=== PATIENT | male | born 1945 ===

== ENCOUNTER 2017-07-14 13:29 | Inpatient (IN) | payer MEDICARE ==
[2017-07-14 15:37] VITALS: BMI 26.6
[2017-07-14] MEDS ORDERED: ROSUVASTATIN CALCIUM 2.5 MG PO SCH (22:00)
[2017-07-14] MEDS: Pravastatin Sodium 20 MG TAB PO SCH (22:30)
--- NOTE | 2017-07-15 07:27 | CP.PCM.PN ---
Subjective - Date & Time of Evaluation Date of Evaluation: 07/15/17 Time of Evaluation: 07:22 - Subjective Subjective: Mr. Carlos was seen and examined at the bedside. He is alert, oriented to place and person, but not time. He states of experiencing headache in the right parietal area, non-radiating, 1/10. He denies any blurred vision, dizziness, lightheadedness, nausea, or vomiting. He is on telesitter for patient for patient safety. There is no untoward events overnight. Objective - Vital Signs/Intake and Output Vital Signs (last 24 hours): Temp Pulse Resp BP Pulse Ox 97.5 F L 59 L 20 136/71 100 07/14/17 20:10 07/14/17 20:10 07/14/17 23:57 07/14/17 20:10 07/14/17 23:57 - Medications Medications: Current Medications Divalproex Sodium (Depakote Dr(*Bid*)) 500 mg PO BID [facility] Docusate Sodium (Colace) 100 mg PO DAILY [facility] Folic Acid (Folic Acid) 1 mg PO DAILY [facility] Lisinopril (Zestril) 2.5 mg PO DAILY [facility] Multivitamins/Minerals (Therapeutic-M Tab) 1 tab PO DAILY [facility] Pantoprazole Sodium (Protonix Ec Tab) 40 mg PO DAILY [facility] Pravastatin Sodium (Pravachol) 20 mg PO HS [facility] Last Admin: 07/14/17 22:30 Dose: 20 mg Sennosides (Senokot Tab) 8.6 mg PO DAILY [facility] Sodium Chloride (Sodium Chloride Tab) 1 gm PO BID [facility] Thiamine HCl (Vitamin B1 Tab) 100 mg PO DAILY [facility] Topiramate (Topamax) 25 mg PO BID [facility] - Constitutional Appears: No Acute Distress - Head Exam Head Exam: NORMAL INSPECTION - Neurological Exam Neurological Exam: Alert, Awake Neuro motor strength exam: Left Upper Extremity: 4, Right Upper Extremity: 5, Left Lower Extremity: 4, Right Lower Extremity: 5 Additional comments: Neurological unchanged from previous examination. Assessment and Plan (1) Acute intra-cranial hemorrhage Assessment & Plan: Case discussed with Dr. Corrales, continue alll current medical, physical, occupational, and speech therapies. Will increase Topamax 50 mg PO BID next week then will increase it to 100 mg PO BID for headache. If headache worsen, to do CT of the head without contrast. Status: Acute
[2017-07-15] MEDS: Pantoprazole 40 mg EC Tab PO SCH (09:27)
[2017-07-15] MEDS: Divalproex 500 mg DR(BID formulation) PO SCH ×2 (09:28→17:02)
[2017-07-15] MEDS: Multivitamin With Minerals Tab PO SCH (09:28)
--- NOTE | 2017-07-15 13:40 | CP.PCM.HP ---
History of Present Illness - History of Present Illness History of Present Illness: pt is seen and examined for , H & P dictated #[id number] Present on Admission - Present on Admission Any Indicators Present on Admission: No History of DVT/PE: No History of Uncontrolled Diabetes: No Urinary Catheter: No Decubitus Ulcer Present: No Past Patient History - Past Medical History & Family History Past Medical History?: Yes - Past Social History Smoking Status: Never Smoked - CARDIAC Hx Hypercholesterolemia: Yes Hx Hypertension: Yes - PULMONARY Hx Respiratory Disorders: No - NEUROLOGICAL Hx Neurological Disorder: No Other/Comment: Intraprenchymal Hemorrhage. + right mild subdural hematoma - HEENT Hx Blind: Yes (left eye) Hx Cataracts: Yes ([place]) Other/Comment: deviated septum repair 3 yr ago s/p fall alcohol use - RENAL Hx Chronic Kidney Disease: No - ENDOCRINE/METABOLIC Hx Diabetes Mellitus Type 2: Yes - HEMATOLOGICAL/ONCOLOGICAL Hx AIDS: No Hx Human Immunodeficiency Virus (HIV): No - INTEGUMENTARY Hx Dermatological Problems: No Other/Comment: bilateral plantar area of the foot dry and scaly. - MUSCULOSKELETAL/RHEUMATOLOGICAL Hx Falls: Yes - GASTROINTESTINAL Hx Gastrointestinal Disorders: No - GENITOURINARY/GYNECOLOGICAL Hx Genitourinary Disorders: No - PSYCHIATRIC Hx Depression: Yes Hx Substance Use: No - SURGICAL HISTORY Hx Surgeries: Yes Other/Comment: deviated septum repair 3 yr ago. 06/28/17 = Right central craniotomy,evacuation of subdural. - ANESTHESIA Hx Anesthesia: Yes Hx Anesthesia Reactions: No Meds Allergies/Adverse Reactions: Allergies Allergy/AdvReac Type Severity Reaction Status Date / Time No Known Allergies Allergy Verified 07/14/17 21:02 Results - Vital Signs Recent Vital Signs: Last Vital Signs Temp 97.6 F 07/15/17 08:43 Pulse 60 07/15/17 12:05 Resp 20 07/15/17 08:43 BP 126/75 07/15/17 12:05 Pulse Ox 99 07/15/17 08:43 - Labs Labs: Laboratory Results - last 24 hr 07/15/17 06:37 POC Glucose (mg/dL) 69
--- NOTE | 2017-07-15 17:21 | PCM.OPOC ---
Physiatry Overall Plan of Care - Overall Plan of Care Estimated Length of Stay in Weeks: 2 Rehab Impairment: Mobility, Gait, Cognition, Speech, Balance, Coordination Etiologic Diagnosis: Cerebrovascular Accident Rehab/Medical Prognosis: Fair - Anticipated Interventions Physical Therapy:: Yes Occupational Therapy:: Yes Speech Therapy:: Yes Recreational Therapy:: Yes - Therapy Goals Bed Mobility: Supervision Ambulation: Supervision Functional Positional Changes:: Supervision - Discharge Plan Discharge Destination: Home
--- NOTE | 2017-07-15 17:24 | CP.PCM.CON ---
History of Present Illness - History of Present Illness History of Present Illness: Dr Holloway PMR consultation on Ant Carlos, born 1945, who has been admitted to [facility] for acute inpatient rehabilitation following a fall while under the influence with SDH. Had evacuation right side. Sweetie in place. Stable. Long standing left eye injury Review of Systems - Constitutional Constitutional: absent: Anorexia, Chills - EENT Eyes: absent: Change in Vision Ears: absent: Ear Discharge Nose/Mouth/Throat: absent: Nasal Congestion - Cardiovascular Cardiovascular: absent: Chest Pain - Respiratory Respiratory: absent: Dyspnea, Hemoptysis, Wheezing - Gastrointestinal Gastrointestinal: absent: Belching, Bloating, Constipation - Musculoskeletal Musculoskeletal: absent: Back Pain - Integumentary Integumentary: Other (right sided scalp sweetie) - Neurological Neurological: Weakness. absent: Abnormal Movements Past Patient History - Past Medical History & Family History Past Medical History?: Yes - Past Social History Smoking Status: Never Smoked Alcohol: > 2 Drinks/Day Drugs: Denies - CARDIAC Hx Hypercholesterolemia: Yes Hx Hypertension: Yes - PULMONARY Hx Respiratory Disorders: No - NEUROLOGICAL Hx Neurological Disorder: No Other/Comment: Intraprenchymal Hemorrhage. + right mild subdural hematoma - HEENT Hx Blind: Yes (left eye) Hx Cataracts: Yes ([place]) Other/Comment: deviated septum repair 3 yr ago s/p fall alcohol use - RENAL Hx Chronic Kidney Disease: No - ENDOCRINE/METABOLIC Hx Diabetes Mellitus Type 2: Yes - HEMATOLOGICAL/ONCOLOGICAL Hx AIDS: No Hx Human Immunodeficiency Virus (HIV): No - INTEGUMENTARY Hx Dermatological Problems: No Other/Comment: bilateral plantar area of the foot dry and scaly. - MUSCULOSKELETAL/RHEUMATOLOGICAL Hx Falls: Yes - GASTROINTESTINAL Hx Gastrointestinal Disorders: No - GENITOURINARY/GYNECOLOGICAL Hx Genitourinary Disorders: No - PSYCHIATRIC Hx Depression: Yes Hx Substance Use: No - SURGICAL HISTORY Hx Surgeries: Yes Other/Comment: deviated septum repair 3 yr ago. 06/28/17 = Right central craniotomy,evacuation of subdural. - ANESTHESIA Hx Anesthesia: Yes Hx Anesthesia Reactions: No Meds Allergies/Adverse Reactions: Allergies Allergy/AdvReac Type Severity Reaction Status Date / Time No Known Allergies Allergy Verified 07/14/17 21:02 - Medications Medications: Current Medications Divalproex Sodium (Yasmeen Pink(*Bid*)) 500 mg PO BID [facility] Last Admin: 07/15/17 17:02 Dose: 500 mg Docusate Sodium (Colace) 100 mg PO DAILY [facility] Last Admin: 07/15/17 09:28 Dose: 100 mg Folic Acid (Folic Acid) 1 mg PO DAILY [facility] Last Admin: 07/15/17 09:29 Dose: 1 mg Lisinopril (Zestril) 2.5 mg PO DAILY [facility] Last Admin: 07/15/17 09:27 Dose: 2.5 mg Multivitamins/Minerals (Therapeutic-M Tab) 1 tab PO DAILY [facility] Last Admin: 07/15/17 09:28 Dose: 1 tab Pantoprazole Sodium (Protonix Ec Tab) 40 mg PO DAILY [facility] Last Admin: 07/15/17 09:27 Dose: 40 mg Pravastatin Sodium (Pravachol) 20 mg PO HS [facility] Last Admin: 07/14/17 22:30 Dose: 20 mg Sennosides (Senokot Tab) 8.6 mg PO DAILY [facility] Last Admin: 07/15/17 09:28 Dose: 8.6 mg Sodium Chloride (Sodium Chloride Tab) 1 gm PO BID [facility] Last Admin: 07/15/17 17:02 Dose: 1 gm Thiamine HCl (Vitamin B1 Tab) 100 mg PO DAILY [facility] Last Admin: 07/15/17 09:29 Dose: 100 mg Topiramate (Topamax) 25 mg PO BID [facility] Last Admin: 07/15/17 17:02 Dose: 25 mg Physical Exam - Constitutional Appears: Non-toxic - Head Exam Head Exam: absent: ATRAUMATIC (right scalp sweetie) - Eye Exam Eye Exam: absent: Normal appearance (has left eye asymmetry) - ENT Exam ENT Exam: Mucous Membranes Moist - Respiratory Exam Respiratory Exam: NORMAL BREATHING PATTERN - Cardiovascular Exam Cardiovascular Exam: REGULAR RHYTHM - GI/Abdominal Exam GI & Abdominal Exam: Normal Bowel Sounds. absent: Distended - Extremities Exam Extremities exam: Positive for: full ROM. Negative for: calf tenderness, pedal edema - Neurological Exam Neurological exam: Alert, CN II-XII Intact, Oriented x3 - Psychiatric Exam Psychiatric exam: Normal Affect, Normal Mood Results - Vital Signs Recent Vital Signs: Last Vital Signs Temp 97.6 F 07/15/17 08:43 Pulse 60 07/15/17 12:05 Resp 20 07/15/17 08:43 BP 126/75 07/15/17 12:05 Pulse Ox 99 07/15/17 08:43 - Labs Labs: Laboratory Results - last 24 hr 07/15/17 06:37 POC Glucose (mg/dL) 69 Assessment & Plan - Assessment and Plan (Free Text) Assessment: PT/OT to continue to help increase functional independence Team conference for d/c planning Pain: controlled Vascular: no evidence of DVT GI: No evidence of constipation or diarrhea Patient is an excellent acute rehabilitation candidate and will have focused pain management, wound care, PT, OT and recreational therapy to help facilitate a safe and appropriate d/c plan impairment code 02.21
[2017-07-15] MEDS: Pravastatin Sodium 20 MG TAB PO SCH (21:13)
--- NOTE | 2017-07-16 00:34 | HP ---
Patient is seen and examined for Dr. Martin Bowen. LOCATION: The patient is located in room 621, bed 1. HISTORY OF PRESENT ILLNESS: Mr. Carlos is a 72-year-old elderly male with a past medical history significant for longstanding hypertension, hyperlipidemia, history of ETOH abuse, history of multiple falls in the past and left eye blind with proptosis, had a fall on and subsequently patient came to the emergency room on 06/17/2017 with a chief complaint of altered mental status and no energy and not following his routine activity since he had a fall and patient's family noticed he has some altered mental status and patient was found to have a right frontal hemorrhage and also subdural hematoma. Subsequently, patient was seen by the Neurology and Neurosurgery and admitted to ICU for further management and initially treated medically. Subsequently, patient underwent evacuation of the right subdural hematoma one week after the admission. Now, patient was transferred to acute rehab for continuation of the physical therapy. Patient is not in acute distress. Denies any headache or dizziness. He denies any chest pain, palpitation. Denies any fever, cough. No abdominal pain. No nausea, vomiting, diarrhea. The patient had weakness of the left upper extremity and lower extremity after the evacuation of subdural hematoma in recovery period. Patient was suspected having seizure and his antiseizure medication was adjusted. PAST MEDICAL HISTORY: Significant for hypertension, hyperlipidemia, multiple falls, ETOH abuse. PAST SURGICAL HISTORY: Status post fall, repair of deviated septum and patient also has proptosis of the left eye. ALLERGIES: NO KNOWN DRUG ALLERGIES. FAMILY HISTORY: Noncontributory. PERSONAL HISTORY: Claims he lives alone, not , no children. He had own his . SOCIAL HISTORY: Denies any smoking or drug abuse. 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 CURRENT MEDICATIONS: Include as follows: Colace 100 mg p.o. daily, Depakote 500 mg p.o. b.i.d., folic acid 1 mg daily, pravastatin 20 mg p.o. at bedtime, Protonix 40 mg daily, Senokot 8.6 mg p.o. daily, sodium chloride tablet 1 g p.o. b.i.d., multivitamin 1 tablet daily, Topamax 25 mg p.o. b.i.d., thiamine 100 mg p.o. daily and lisinopril 2.5 mg p.o. daily. REVIEW OF SYSTEMS: Status post fall, intracranial bleed and subdural hematoma, status post evacuation of hematoma, status post left-sided weakness secondary to seizure. All other review of systems are reviewed as per HPI. PHYSICAL EXAMINATION: GENERAL: Mr. Carlos is a 72-year-old elderly male, moderately build, moderately nourished, not in acute distress. VITAL SIGNS: Blood pressure 126/75, pulse 60, respirations 20, temperature 97.6, saturation 100%. Height 5 feet 1 inches, weight is 145 pounds, BMI of 27.5. HEENT: Patient has a scar on the right frontoparietal area and also patient has proptosis on the left eye. Tongue is moist. Trachea is midline. LUNGS: Symmetric on both sides. Bilateral breath sounds present. Clear on auscultation. CARDIOVASCULAR SYSTEM: [place] at the fifth intercostal space in midclavicular line. S1 and S2 audible. No murmur or gallop. ABDOMEN: Normal in appearance. Soft, tympanic. No guarding. No rigidity. No hepatosplenomegaly. CENTRAL NERVOUS SYSTEM: The patient is alert, awake, oriented x2-3. Sensory and motor system is grossly within normal limits. EXTREMITIES: No cyanosis. No clubbing. No edema. Power in both upper and lower extremities is normal at 5/5. LABORATORY DATA: No new labs available. Accu-Chek 59. His other laboratory data as of 07/13/2017, WBC 4.8, hemoglobin 13, hematocrit 37.4, platelets 153. Sodium 134, potassium 3.4, chloride 101, CO2 of 26, BUN 13, creatinine 0.8, glucose 92, calcium 7.9, magnesium 2.2, total bilirubin 0.7, AST 22, ALT 34, alkaline phosphatase 79, total protein 6.7, albumin 3.4, valproic acid level is 65.4 on 07/12/2017 and the normal range is 50 to 100. As of 07/14/2017, sodium 134, potassium 3.7, chloride 105, CO2 of 22, BUN 13, creatinine 0.9, glucose 84, calcium 8.3. CT of the head as of 07/12/2017, cystic encephalomalacia is developing at the right frontal intraparenchymal hemorrhage site with hemorrhage appearing further diminished in density and overall volume, stable right cerebral convexity, subdural hematoma appreciated though, diminished in density with trace pneumocephalus remaining, limited right epidural hematoma are further diminished in density and volume, midline shift is reducing, no acute intracranial findings appreciable grossly. In summary, Mr. Carlos is a 72-year-old elderly male with history of hypertension, hyperlipidemia, ethyl alcohol abuse, history of multiple falls, status post fall on with altered mental status and decreased activity, brought into the hospital on 06/17/2017 after 7 to 9 days by the family and found to have right frontal bleed and also a right subdural hematoma, status post evacuation of the hematoma subdural, questionable seizure activity and left-sided weakness in [facility] postop. 1. Hypertension, blood pressure is stable. Continue enalapril. Monitor his blood pressure, avoid blood pressure more than 140. 2. Status post fall with intracranial bleed. 3. Status post evacuation of the right subdural hematoma. 4. 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 5. Status post hyponatremia, most likely secondary to syndrome of inappropriate antidiuretic hormone secondary to intracranial bleed and subdural hematoma. PLAN: Continue his current medication. Continue thiamine and continue Depakote. Continue enalapril and continue sodium chloride tablets, multivitamin, and folic acid. Continue pravastatin. Continue physical therapy as per the rehab recommendations. Patient was seen and examined. Amanda Bowen MD
[2017-07-16] MEDS: Divalproex 500 mg DR(BID formulation) PO SCH ×2 (08:27→17:23)
[2017-07-16] MEDS: Multivitamin With Minerals Tab PO SCH (08:28)
[2017-07-16] MEDS: Pantoprazole 40 mg EC Tab PO SCH (08:29)
[2017-07-16] MEDS: Pravastatin Sodium 20 MG TAB PO SCH (21:32)
[2017-07-17 06:54] LABS: HEMOGLOBIN 12.7 g/dL (12.0-18.0); MEAN CORPUSCULAR HEMOGLOBIN 30.8 pg (27.0-31.0); MEAN CORPUSCULAR HGB CONC 34.3 g/dL (33.0-37.0); RBC 4.13 Mil/uL (4.40-5.90); RED CELL DISTRIBUTION WIDTH 13.8 % (11.5-14.5); WHITE BLOOD COUNT 5.2 K/uL (4.8-10.8)
[2017-07-17 07:09] LABS: BLOOD UREA NITROGEN 15 mg/dl (9-20); CALCIUM 8.9 mg/dL (8.4-10.2); GFR AFRICAN-AMERICAN > 60; GFR NON-AFRICAN AMERICAN > 60
[2017-07-17] MEDS: Divalproex 500 mg DR(BID formulation) PO SCH ×2 (08:45→16:53)
[2017-07-17] MEDS: Multivitamin With Minerals Tab PO SCH (08:45)
[2017-07-17] MEDS: Pantoprazole 40 mg EC Tab PO SCH (08:46)
[2017-07-17] MEDS: Pravastatin Sodium 20 MG TAB PO SCH (21:05)
--- NOTE | 2017-07-18 06:55 | CP.PCM.PN ---
Subjective - Date & Time of Evaluation Date of Evaluation: 07/18/17 Time of Evaluation: 06:53 - Subjective Subjective: Mr. Carlos was seen and examined at the bedside. He is alert, oriented to place and person , but not time. He states of his headache improving over the weekend. He also denies any blurred vision, dizziness, lightheadedness, nausea, or vomiting. He remains on telesitter for patient safety. There was no untoward events overnight. Objective - Vital Signs/Intake and Output Vital Signs (last 24 hours): Temp Pulse Resp BP Pulse Ox 96.9 F L 69 20 102/67 96 07/17/17 19:51 07/17/17 19:51 07/17/17 19:51 07/17/17 19:51 07/17/17 19:51 - Medications Medications: Current Medications Divalproex Sodium (Depakote Dr(*Bid*)) 500 mg PO BID [facility] Last Admin: 07/17/17 16:53 Dose: 500 mg Docusate Sodium (Colace) 100 mg PO DAILY [facility] Last Admin: 07/17/17 08:45 Dose: 100 mg Folic Acid (Folic Acid) 1 mg PO DAILY [facility] Last Admin: 07/17/17 08:45 Dose: 1 mg Lisinopril (Zestril) 2.5 mg PO DAILY [facility] Last Admin: 07/17/17 08:46 Dose: 2.5 mg Multivitamins/Minerals (Therapeutic-M Tab) 1 tab PO DAILY [facility] Last Admin: 07/17/17 08:45 Dose: 1 tab Pantoprazole Sodium (Protonix Ec Tab) 40 mg PO DAILY [facility] Last Admin: 07/17/17 08:46 Dose: 40 mg Pravastatin Sodium (Pravachol) 20 mg PO HS [facility] Last Admin: 07/17/17 21:05 Dose: 20 mg Sennosides (Senokot Tab) 8.6 mg PO DAILY [facility] Last Admin: 07/17/17 08:45 Dose: 8.6 mg Sodium Chloride (Sodium Chloride Tab) 1 gm PO BID [facility] Last Admin: 07/17/17 16:53 Dose: 1 gm Thiamine HCl (Vitamin B1 Tab) 100 mg PO DAILY [facility] Last Admin: 07/17/17 08:45 Dose: 100 mg Topiramate (Topamax) 50 mg PO BID [facility] - Labs Labs: 07/17/17 06:00 01/01/18 06:00 - Constitutional Appears: No Acute Distress - Head Exam Head Exam: NORMAL INSPECTION - Neurological Exam Neurological Exam: Alert, Awake Neuro motor strength exam: Left Upper Extremity: 4, Right Upper Extremity: 5, Left Lower Extremity: 4, Right Lower Extremity: 5 Additional comments: Neurological unchanged from previous examination. Assessment and Plan (1) Acute intra-cranial hemorrhage Assessment & Plan: Case discussed with Dr. Corrales, recommend to increase Topamax from 25 mg PO BID to [address] of the head without contrasts to follow up the midline shift and cystic encephalomalacia. Recommends valproic level due to his depakote meds. Status: Acute
[2017-07-18] MEDS: Multivitamin With Minerals Tab PO SCH (08:29)
[2017-07-18] MEDS: Pantoprazole 40 mg EC Tab PO SCH (08:29)
[2017-07-18] MEDS: Divalproex 500 mg DR(BID formulation) PO SCH ×2 (08:29→17:18)
--- NOTE | 2017-07-18 08:45 | CT ---
PROCEDURE: CT HEAD WITHOUT CONTRAST. HISTORY: follow [facility] COMPARISON: 07/12/2017 and 07/07/2017 performed at [facility] TECHNIQUE: Axial computed tomography images were obtained through the head/brain without intravenous contrast. Radiation dose: Total exam DLP = 1475.78 mGy-cm. This CT exam was performed using one or more of the following dose reduction techniques: Automated exposure control, adjustment of the mA and/or kV according to patient size, and/or use of iterative reconstruction technique. FINDINGS: HEMORRHAGE: No residual high attenuation in the region of the previously noted right frontal parenchymal hemorrhage. There is residual low-attenuation consistent with encephalomalacia change and edema. There is continued decrease in size of the right high frontal extra-axial collection, likely subdural, compared to 07/05. Postoperative changes are seen status post right frontal craniotomy. There is no acute intracranial hemorrhage. There is no new extra-axial collection. Evaluation is limited by patient motion artifact. BRAIN: No intracranial mass. There is approximately 9 mm midline shift towards the left. This is not appreciably changed when compared to the prior examination. VENTRICLES: No hydrocephalus. No evidence of downward herniation. Basal cisterns are preserved. CALVARIUM: Right frontal craniotomy PARANASAL SINUSES: Unremarkable as visualized. No significant inflammatory changes. MASTOID AIR CELLS: Unremarkable as visualized. No inflammatory changes. OTHER FINDINGS: None. IMPRESSION: Subacute right frontal hemorrhage with no residual high attenuation blood products with surrounding edema/ encephalomalacia. Decreasing size of right frontal extra-axial collection. Status post right frontal craniotomy. 9 mm midline shift towards the left. No downward herniation. No new hemorrhage.
--- NOTE | 2017-07-18 13:58 | CP.PCM.PN ---
Subjective - Date & Time of Evaluation Date of Evaluation: 07/18/17 Time of Evaluation: 10:00 - Subjective Subjective: no acute [id number] of any headache or pain Objective - Vital Signs/Intake and Output Vital Signs (last 24 hours): Temp Pulse Resp BP Pulse Ox 97.3 F L 51 L 20 114/48 L 96 07/18/17 07:59 07/18/17 07:59 07/18/17 07:59 07/18/17 08:28 07/18/17 07:59 - Medications Medications: Current Medications Divalproex Sodium (Depakote Dr(*Bid*)) 500 mg PO BID [facility] Last Admin: 07/18/17 08:29 Dose: 500 mg Docusate Sodium (Colace) 100 mg PO DAILY [facility] Last Admin: 07/18/17 08:29 Dose: 100 mg Folic Acid (Folic Acid) 1 mg PO DAILY [facility] Last Admin: 07/18/17 08:28 Dose: 1 mg Lisinopril (Zestril) 2.5 mg PO DAILY [facility] Last Admin: 07/18/17 08:28 Dose: 2.5 mg Multivitamins/Minerals (Therapeutic-M Tab) 1 tab PO DAILY [facility] Last Admin: 07/18/17 08:29 Dose: 1 tab Pantoprazole Sodium (Protonix Ec Tab) 40 mg PO DAILY [facility] Last Admin: 07/18/17 08:29 Dose: 40 mg Pravastatin Sodium (Pravachol) 20 mg PO HS [facility] Last Admin: 07/17/17 21:05 Dose: 20 mg Sennosides (Senokot Tab) 8.6 mg PO DAILY [facility] Last Admin: 07/18/17 08:30 Dose: 8.6 mg Sodium Chloride (Sodium Chloride Tab) 1 gm PO BID [facility] Last Admin: 07/18/17 08:27 Dose: 1 gm Thiamine HCl (Vitamin B1 Tab) 100 mg PO DAILY [facility] Last Admin: 07/18/17 08:27 Dose: 100 mg Topiramate (Topamax) 50 mg PO BID [facility] Last Admin: 07/18/17 10:18 Dose: 50 mg - Labs Labs: 07/17/17 06:00 07/17/17 06:00 - Head Exam Additional comments: scalp healing with madhuri - Eye Exam Eye Exam: EOMI, Normal appearance, PERRL Pupil Exam: NORMAL ACCOMODATION - ENT Exam ENT Exam: Mucous Membranes Moist, Normal Exam - Neck Exam Neck Exam: Full ROM, Normal Inspection - Respiratory Exam Respiratory Exam: NORMAL BREATHING PATTERN - Cardiovascular Exam Cardiovascular Exam: REGULAR RHYTHM - GI/Abdominal Exam GI & Abdominal Exam: Soft, Normal Bowel Sounds - Rectal Exam Rectal Exam: NORMAL INSPECTION - Exam External exam: NORMAL EXTERNAL EXAM - Extremities Exam Extremities Exam: Full ROM, Normal Capillary Refill - Back Exam Back Exam: NORMAL INSPECTION - Neurological Exam Neurological Exam: Alert, Awake Neuro motor strength exam: Left Upper Extremity: 3, Right Upper Extremity: 3, Left Lower Extremity: 3, Right Lower Extremity: 3 - Psychiatric Exam Psychiatric exam: Normal Affect, Normal Mood - Skin Skin Exam: Dry, Intact, Normal Color Assessment and Plan (1) Acute intra-cranial hemorrhage Assessment & Plan: plan for physical, occupatonal, rec therapy for team conference Status: Acute (2) Alcohol intoxication Status: Acute (3) Fall Status: Acute (4) Head ache Status: Acute (5) Intraparenchymal hematoma of brain Status: Acute (6) Multiple fractures of ribs Status: Acute
[2017-07-18] MEDS: Pravastatin Sodium 20 MG TAB PO SCH (21:21)
[2017-07-19 07:50] LABS: ALBUMIN 3.2 g/dL (3.5-5.0); BILIRUBIN,DIRECT 0.2 mg/ml (0.0-0.4)
[2017-07-19] MEDS: Divalproex 500 mg DR(BID formulation) PO SCH ×2 (08:06→16:29)
[2017-07-19] MEDS: Multivitamin With Minerals Tab PO SCH (08:07)
[2017-07-19] MEDS: Pantoprazole 40 mg EC Tab PO SCH (08:07)
--- NOTE | 2017-07-19 08:33 | CP.PCM.PN ---
Subjective - Date & Time of Evaluation Date of Evaluation: 07/19/17 Time of Evaluation: 08:30 - Subjective Subjective: Mr. Carlos was seen and examined at the bedside. He is alert, oriented, able to answer questions appropriately and follows simple commands. He further states of his headache improved with pain scale 1/10, non-radiating, with location in the parietal area. He denies any blurred vision, dizziness, lightheadedness, nausea, or vomiting. The repeat CT of the head showed improvement form previous examination. His valproic level 51.5 and Na-141. He remains on telesitter for patient safety. There was no untoward events overnight. Objective - Vital Signs/Intake and Output Vital Signs (last 24 hours): Temp Pulse Resp BP Pulse Ox 97.0 F L 63 18 132/80 100 07/18/17 21:00 07/19/17 08:00 07/19/17 08:00 07/19/17 08:07 07/19/17 08:00 - Medications Medications: Current Medications Divalproex Sodium (Depakote Dr(*Bid*)) 500 mg PO BID [facility] Last Admin: 07/19/17 08:06 Dose: 500 mg Docusate Sodium (Colace) 100 mg PO DAILY [facility] Last Admin: 07/19/17 08:07 Dose: 100 mg Folic Acid (Folic Acid) 1 mg PO DAILY [facility] Last Admin: 07/19/17 08:06 Dose: 1 mg Lisinopril (Zestril) 2.5 mg PO DAILY [facility] Last Admin: 07/19/17 08:07 Dose: 2.5 mg Multivitamins/Minerals (Therapeutic-M Tab) 1 tab PO DAILY [facility] Last Admin: 07/19/17 08:07 Dose: 1 tab Pantoprazole Sodium (Protonix Ec Tab) 40 mg PO DAILY [facility] Last Admin: 07/19/17 08:07 Dose: 40 mg Pravastatin Sodium (Pravachol) 20 mg PO HS [facility] Last Admin: 07/18/17 21:21 Dose: 20 mg Sennosides (Senokot Tab) 8.6 mg PO DAILY [facility] Last Admin: 07/19/17 08:06 Dose: 8.6 mg Sodium Chloride (Sodium Chloride Tab) 1 gm PO DAILY [facility] Thiamine HCl (Vitamin B1 Tab) 100 mg PO DAILY [facility] Last Admin: 07/19/17 08:06 Dose: 100 mg Topiramate (Topamax) 50 mg PO BID [facility] Last Admin: 07/19/17 08:06 Dose: 50 mg - Labs Labs: 07/17/17 06:00 07/17/17 06:00 - Constitutional Appears: No Acute Distress - Head Exam Head Exam: NORMAL INSPECTION - Neurological Exam Neurological Exam: Alert, Awake Neuro motor strength exam: Left Upper Extremity: 5, Right Upper Extremity: 4, Left Lower Extremity: 5, Right Lower Extremity: 4 Additional comments: Neurological unchanged from previous examination. Assessment and Plan (1) Acute intra-cranial hemorrhage Assessment & Plan: Case discussed with Dr. Corrales, continue current medical, physical, occupational therapies. With Valproic level within normal , to continue same dose of Depakote. Recommends to decrease salt tablet from BID to daily since his Na level is within normal limits. Will repeat BMP in couple of days. Status: Acute
--- NOTE | 2017-07-19 12:19 | PSY.TMCNF ---
Nursing - Vital Signs Vital Signs (Last 8 hours): Vital Signs 07/19/17 07/19/17 07/19/17 08:00 08:07 08:25 Temperature 97.0 F L Pulse Rate 63 63 Respiratory 18 18 Rate Blood Pressure 132/80 132/80 132/80 O2 Sat by Pulse 100 Oximetry Pain: 0 - Precautions: Precautions: Fall Prevention - Medications/Other Issues Comment: - Still on Avasys - Consults Comment: Dr. Escobar ( Neuro ) , Dr. Holloway ( Rehab ) - Skin Incision Site: Right side of the head Dressing Status: Clean, Dry, Intact Incision: Healing Well, Sweetie Intact, No Drainage Noted Incision Line Treatment: open to air - Toileting Toileting: Supervision - Bladder Management Bladder Pattern: Normal Voiding Method: Toilet - Bowel Management Bowel Pattern: Normal Bowel Management: Supervision Frequency of Accidents: 0 - Transfers Transfers: Minimal Assistance - ADL's ADL's: Minimal Assistance - Patient/Family Teaching Comments: Care post head injury and safety precautions - Goals/Time Frame Comments: Per multidisciplinary care plan and goals - Provider Provider: Robina CASEN RN CRRN Physical Therapy - Bed Mobility Bed Mobility: Supervision, Verbal Cues, Contact Guard - Transfers Wheelchair to Mat: Supervision, Verbal Cues, Contact Guard Sit to Stand: Verbal Cues, Contact Guard - Ambulation Level of Assistance: Verbal Cues, Contact Guard Distance (ft.): 75 Assistive Devices: Single point cane Orthoses: n/a Comment: -SPC (RUE), level surface, CG. -utilize min tactile cues and verbal cues to attempt to have patient increase speed. -VCs for upright gaze and improved safety. -patient lacks motivation and safety. -demonstrates very slow gait with little reactions to environmental stimuli - Stair Negotiation Stairs: Level of Assistance: Contact Guard Stairs: Assistive Devices: Left Handrail, Right Handrail Comment: 5 training steps (3-4inch and 2-6inch) with CG/min A, self-selected reciprocal pattern, L hand rail and SPC on R side. -impaired eccentric control on descent with very slow speed noted during stair negotiation - Standing Balance Static Stand: Contact Guard Assist Dynamic Stand: Minimal Assistance - Pain Pain (assessed during therapy session): 0 - Insight/Carryover Insight/Carryover: Poor - Patient/Family Education Comment: Pt disoriented, with poor awareness and safety awareness. Pt with poor insight to deficits and affect on importance, pt requires continued education and training with family present secondary to cognitive deficits - Assessment/Plan Assessment: Pt was oriented to benefits and purpose of participating in recreation therapy sessions throughout stay on unit. Pt participated in dominoes task and required mod A throughout task. Pt required mod-max verbal cues for number recognition, visual scanning, and attention to task. Pt required mod verbal cues for carryover of task rules. Pt demonstrated decrease arousal level and activity tolerance level. Pt would benefit from participating in recreation therapy sessions to improve attention to task, arousal level, and direction following. - Goals Timeframe: 1 week Goals: S toileting. S toilet txfers. S UE Dressing. S LE dressing. MOD I grooming. MOD I feeding. MIN A bathing. MIN A tub txfer - Provider Therapist: Mary Fiore PT, DPT License Number: [id number] Occupational Therapy - Arousal/Attention/Orientation Patient Orientation: Person - ADL/IADL Self Feeding: Supervision, Set-up Help Grooming: Supervision, Verbal Cues, Set-up Help Dressing-Upper Extremity: Verbal Cues, Set-up Help, Minimal Assistance Dressing-Lower Extremity: Verbal Cues, Set-up Help, Maximum Assistance Comment: Bathing: TBA - Sitting Balance Static Sitting: Supervision Dynamic Sitting: Reaches across midline, Reaches out of base of support, Reaches within base of support, Requires supervision Comment: seated at edge of bed - Transfers Wheelchair to Bed Transfers: Verbal Cues, Set-up Help, Minimal Assistance Toilet Transfers: Set-up Help, Minimal Assistance - Upper Extremity Status Right Upper Extremity Comment: ROM WFL, MMT grossly 4+/5 Left Upper Extremity Comment: ROM WFL, MMT grossly 4-/5, Impaired coordination/ dexterity - Pain Pain (assessed during therapy session): 0 - Insight/Carryover Insight/Carryover: Poor - Patient/Family Education Comment: Pt disoriented, with poor awareness and safety awareness. Pt with poor insight to deficits and affect on importance, pt requires continued education and training with family present secondary to cognitive deficits - Assessment/Plan Assessment: Pt was oriented to benefits and purpose of participating in recreation therapy sessions throughout stay on unit. Pt participated in dominoes task and required mod A throughout task. Pt required mod-max verbal cues for number recognition, visual scanning, and attention to task. Pt required mod verbal cues for carryover of task rules. Pt demonstrated decrease arousal level and activity tolerance level. Pt would benefit from participating in recreation therapy sessions to improve attention to task, arousal level, and direction following. - Goals Timeframe: 1 week Goals: S toileting. S toilet txfers. S UE Dressing. S LE dressing. MOD I grooming. MOD I feeding. MIN A bathing. MIN A tub txfer - Provider Therapist: Valerie Benedict License Number: [id number] Speech Therapy - Consult Information Patient on Program: Yes Medical Diagnosis: INTRAPARENCHYMAL HEMORRHAGE Treatment Diagnosis: moderate cognitive-linguistic deficits - Assessment Problem Solving Impairment: Moderate Memory Impairment: Moderate - Plan Assessment: Pt was oriented to benefits and purpose of participating in recreation therapy sessions throughout stay on unit. Pt participated in dominoes task and required mod A throughout task. Pt required mod-max verbal cues for number recognition, visual scanning, and attention to task. Pt required mod verbal cues for carryover of task rules. Pt demonstrated decrease arousal level and activity tolerance level. Pt would benefit from participating in recreation therapy sessions to improve attention to task, arousal level, and direction following. - Provider Therapist: Janet Alfred License Number: [id number] Recreational Therapy - Participation Participation: Participates in Individual and/or Group Sessions - Attendance Attendance: Daily - Activities Leisure Activities: Television - Socialization Level of Socialization: Initiates/interacts freely with care givers and peer - Diversional Time Diversional Time: likes to watch television, sports - Assessment Assessment/Plan: Pt was oriented to benefits and purpose of participating in recreation therapy sessions throughout stay on unit. Pt participated in dominoes task and required mod A throughout task. Pt required mod-max verbal cues for number recognition, visual scanning, and attention to task. Pt required mod verbal cues for carryover of task rules. Pt demonstrated decrease arousal level and activity tolerance level. Pt would benefit from participating in recreation therapy sessions to improve attention to task, arousal level, and direction following. Problems Currently Limiting Participation: disoriented, decrease activity tolerance level, decrease leisure awareness level, decrease memory recall, language barrier, decrease safety awareness Goals and Time Frame: Pt will be encouraged to participate in 1:1 and group recreation therapy sessions 3-5x week to improve activity tolerance level, leisure awareness level, safety awareness, problem solving, and direction following. - Provider Therapist: Radha Ramachandran, PALAEONTOLOGIST #[id number] Nutrition - Current Diet Current Diet/ Supplement/ Feedings: 3 gram Na ensure plus 8 ounces 1 per day - Appetite Percent Meal Consumed: 50-74% - Comments Comments: Care post head injury and safety precautions - Assessment/Goals/Time Frame Assessment/Goals/Time Frame: - Still on Avasys - Provider Provider: Angelique Morel RD Case Management - Discharge Plan Discharge Plan: Home with significant other/family Rehabilitation Plan - Treatment Plan Treatment Plan: Physical Therapy, Occupational Therapy, Speech, Dietary, Patient /Family Education - Recommendation Recommendation: Physical Therapy, Occupational Therapy, Speech, Dietary, Patient /Family Education - Discharge Plan Discharge to: Home ()
--- NOTE | 2017-07-19 12:46 | CP.PCM.PN ---
Subjective - Date & Time of Evaluation Date of Evaluation: 07/19/17 Time of Evaluation: 11:00 - Subjective Subjective: no acute complaints of any headache. Objective - Vital Signs/Intake and Output Vital Signs (last 24 hours): Temp Pulse Resp BP Pulse Ox 97.0 F L 63 18 132/80 100 07/19/17 08:25 07/19/17 08:25 07/19/17 08:25 07/19/17 08:25 07/19/17 08:00 - Medications Medications: Current Medications Divalproex Sodium (Depakote Dr(*Bid*)) 500 mg PO BID [facility] Last Admin: 07/19/17 08:06 Dose: 500 mg Docusate Sodium (Colace) 100 mg PO DAILY [facility] Last Admin: 07/19/17 08:07 Dose: 100 mg Folic Acid (Folic Acid) 1 mg PO DAILY [facility] Last Admin: 07/19/17 08:06 Dose: 1 mg Lisinopril (Zestril) 2.5 mg PO DAILY [facility] Last Admin: 07/19/17 08:07 Dose: 2.5 mg Multivitamins/Minerals (Therapeutic-M Tab) 1 tab PO DAILY [facility] Last Admin: 07/19/17 08:07 Dose: 1 tab Pantoprazole Sodium (Protonix Ec Tab) 40 mg PO DAILY [facility] Last Admin: 07/19/17 08:07 Dose: 40 mg Pravastatin Sodium (Pravachol) 20 mg PO HS [facility] Last Admin: 07/18/17 21:21 Dose: 20 mg Sennosides (Senokot Tab) 8.6 mg PO DAILY [facility] Last Admin: 07/19/17 08:06 Dose: 8.6 mg Sodium Chloride (Sodium Chloride Tab) 1 gm PO DAILY [facility] Last Admin: 07/19/17 09:22 Dose: Not Given Thiamine HCl (Vitamin B1 Tab) 100 mg PO DAILY [facility] Last Admin: 07/19/17 08:06 Dose: 100 mg Topiramate (Topamax) 50 mg PO BID [facility] Last Admin: 07/19/17 08:06 Dose: 50 mg - Labs Labs: 07/17/17 06:00 07/17/17 06:00 - Head Exam Additional comments: scalp healing with madhuri and sutures - Eye Exam Eye Exam: EOMI, Normal appearance, PERRL Pupil Exam: NORMAL ACCOMODATION - ENT Exam ENT Exam: Mucous Membranes Moist, Normal Exam - Neck Exam Neck Exam: Normal Inspection - Respiratory Exam Respiratory Exam: NORMAL BREATHING PATTERN - Cardiovascular Exam Cardiovascular Exam: REGULAR RHYTHM - GI/Abdominal Exam GI & Abdominal Exam: Normal Bowel Sounds - Rectal Exam Rectal Exam: NORMAL INSPECTION - Exam External exam: NORMAL EXTERNAL EXAM - Extremities Exam Extremities Exam: Full ROM, Normal Capillary Refill - Back Exam Back Exam: NORMAL INSPECTION - Neurological Exam Neurological Exam: Alert, Awake Neuro motor strength exam: Left Upper Extremity: 3, Right Upper Extremity: 3, Left Lower Extremity: 3, Right Lower Extremity: 3 Additional comments: problems with balance and coordiantion - Psychiatric Exam Psychiatric exam: Flat Affect, Normal Affect - Skin Skin Exam: Dry, Intact Assessment and Plan (1) Acute intra-cranial hemorrhage Assessment & Plan: plan for physical, occupational, rec and speech therapy status post team conference DC for jul 27 needs time to work on balance and coordination discussed with family Status: Acute (2) Alcohol intoxication Status: Acute (3) Fall Status: Acute (4) Head ache Status: Acute (5) Intraparenchymal hematoma of brain Status: Acute (6) Multiple fractures of ribs Status: Acute
--- NOTE | 2017-07-19 19:59 | CP.PCM.PN ---
Subjective - Date & Time of Evaluation Date of Evaluation: 07/19/17 Time of Evaluation: 19:58 - Subjective Subjective: pt is seen and examined, progress note is dictated #[id number] seen for dr. parish restoril 15 mg po x1 tonight Objective - Vital Signs/Intake and Output Vital Signs (last 24 hours): Temp Pulse Resp BP Pulse Ox 97.0 F L 63 18 132/80 100 07/19/17 08:25 07/19/17 08:25 07/19/17 08:25 07/19/17 08:25 07/19/17 08:00 - Medications Medications: Current Medications Divalproex Sodium (Depakote Dr(*Bid*)) 500 mg PO BID [facility] Last Admin: 07/19/17 16:29 Dose: 500 mg Docusate Sodium (Colace) 100 mg PO DAILY [facility] Last Admin: 07/19/17 08:07 Dose: 100 mg Folic Acid (Folic Acid) 1 mg PO DAILY [facility] Last Admin: 07/19/17 08:06 Dose: 1 mg Lisinopril (Zestril) 2.5 mg PO DAILY [facility] Last Admin: 07/19/17 08:07 Dose: 2.5 mg Multivitamins/Minerals (Therapeutic-M Tab) 1 tab PO DAILY [facility] Last Admin: 07/19/17 08:07 Dose: 1 tab Pantoprazole Sodium (Protonix Ec Tab) 40 mg PO DAILY [facility] Last Admin: 07/19/17 08:07 Dose: 40 mg Pravastatin Sodium (Pravachol) 20 mg PO HS [facility] Last Admin: 07/18/17 21:21 Dose: 20 mg Sennosides (Senokot Tab) 8.6 mg PO DAILY [facility] Last Admin: 07/19/17 08:06 Dose: 8.6 mg Sodium Chloride (Sodium Chloride Tab) 1 gm PO DAILY [facility] Last Admin: 07/19/17 09:22 Dose: Not Given Thiamine HCl (Vitamin B1 Tab) 100 mg PO DAILY [facility] Last Admin: 07/19/17 08:06 Dose: 100 mg Topiramate (Topamax) 50 mg PO BID [facility] Last Admin: 07/19/17 16:29 Dose: 50 mg - Labs Labs: 07/17/17 06:00 07/17/17 06:00
[2017-07-19] MEDS: Pravastatin Sodium 20 MG TAB PO SCH (21:08)
--- NOTE | 2017-07-20 07:24 | PN ---
DATE: 07/19/2017 The patient is seen and examined for Dr. Martin Bowen. LOCATION: The patient is located in room 621, bed 1. SUBJECTIVE: Mr. 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 The patient was admitted 1 week after the fall with altered mental status, decreased activity and confusion. The patient was found to have a right frontal intracranial bleed and also subdural hematoma. Subsequently, the patient underwent evacuation of the subdural hematoma. His repeated CAT scans were improving with intracranial bleed and slower resolution and changes secondary to bleed. Now, the patient was transferred to acute rehab for continuation of the physical therapy. The patient is sometimes restless and insomniac. The patient is at nursing station this evening, not in any distress, following commands. No chest pain. No palpitation. No fever. No cough. PHYSICAL EXAMINATION: GENERAL: Mr. Carlos is a 72-year-old elderly male, moderately built, moderately nourished, not in any acute distress. VITAL SIGNS: His vital signs as follows; blood pressure 132/80 this morning, pulse 63, respirations 18, temperature 97 and this afternoon, blood pressure 124/69. Height 5 feet 1 inches. Weight is 145 pounds. HEENT: The patient has some madhuri on the right frontoparietal area from the recent subdural hematoma evacuation. Left eye is prosthesis. Right eye is normal. No thyroid enlargement. Tongue is moist. Trachea is midline. LUNGS: Symmetric on both sides. Bilateral breath sounds present. Clear on auscultation. CARDIOVASCULAR SYSTEM: [place] at the fifth intercostal space, midclavicular line. S1 and S2 audible. No murmur or gallop. ABDOMEN: Normal in appearance, soft, tympanic. No guarding. No rigidity. No hepatosplenomegaly. CENTRAL NERVOUS SYSTEM: The patient is alert, awake, following commands appropriately. Sensorimotor system is grossly within normal limits. EXTREMITIES: No cyanosis. No clubbing. No edema. Power in all extremities is 5/5. LABORATORY DATA: As of 07/17/2017, WBC 5.2, hemoglobin 12.7, hematocrit is 37.2, platelet 166. Sodium 141, potassium 3.7, chloride 110, CO2 of 21, BUN 15, creatinine 1.0, glucose 75, calcium 8.9, total bili 0.3 and AST 23, ALT 24, alkaline phosphatase 68, total protein 6.3, albumin is 3.2, valproic acid is 51.5 as of 07/18/2017. CT of the head as of 07/18/2017: Subacute right frontal hemorrhage with no residual high attenuation. Blood products with surrounding edema, encephalomalacia, decreasing size of right frontal extra axial collection, status post right frontal craniotomy. 9 mm midline shift toward the left. No downward herniation. No new hemorrhage. MEDICATIONS: His current medications include as follows; Colace 100 mg p.o. daily and Depakote 500 mg p.o. b.i.d. and folic acid 1 mg p.o. daily and Pravachol 20 mg at bedtime, Protonix 40 mg daily, Restoril 15 mg x1 dose tonight and Senokot 8.6 mg p.o. daily, sodium chloride tablet 1 g p.o. daily, multivitamin 1 tablet daily and Topamax 50 mg p.o. b.i.d., thiamine 100 mg p.o. daily and Zestril 2.5 mg p.o. daily. ASSESSMENT AND PLAN: In summary, Mr. Carlos is a 72-year-old elderly male with a history of hypertension, hyperlipidemia, ethyl alcohol abuse, status post fall on , who was admitted 1 week after the fall with altered mental status and decreased mentation and decreased activity. Brought in by the family and found to have a right frontal bleed and subdural hematoma, status post evacuation of the hematoma and hospital course complicated by weakness on the left side, which resolved after 10 to 15 minutes or half an hour and suspected to have seizures as the cause for the left-sided weakness and the patient is on antiseizure medications since then. 1. Hypertension. Blood pressure is stable. Continue lisinopril. 2. Status post fall with intracranial bleed, which is stable at this time, status post evacuation of the right subdural hematoma. Continue to follow up with Neurology and Neurosurgery for removal of the madhuri and we will give Restoril 15 mg p.o. x1 dose for insomnia. We will follow with you. Thank you for allowing me to participate in your patient's care. The patient is seen and examined for Dr. Martin Bowen. Amanda Bowen MD
--- NOTE | 2017-07-20 08:33 | CP.PCM.PN ---
Subjective - Date & Time of Evaluation Date of Evaluation: 07/20/17 Time of Evaluation: 08:30 - Subjective Subjective: Mr. Carlos was seen and examined at the bedside. He is alert, oriented to place and person. He denies any headache, blurred vision, dizziness, lightheadedness, nausea, or vomiting. According to staff he had episode of restlessness/ inability to sleep, staff medicated him with restoril. He was able to sleep. He remains on telesitter for patient safety. Objective - Vital Signs/Intake and Output Vital Signs (last 24 hours): Temp Pulse Resp BP Pulse Ox 97.5 F L 97 H 20 141/87 100 07/19/17 21:00 07/19/17 21:00 07/19/17 21:00 07/19/17 21:00 07/19/17 21:00 - Medications Medications: Current Medications Divalproex Sodium (Depakote Dr(*Bid*)) 500 mg PO BID [facility] Last Admin: 07/19/17 16:29 Dose: 500 mg Docusate Sodium (Colace) 100 mg PO DAILY [facility] Last Admin: 07/19/17 08:07 Dose: 100 mg Folic Acid (Folic Acid) 1 mg PO DAILY [facility] Last Admin: 07/19/17 08:06 Dose: 1 mg Lisinopril (Zestril) 2.5 mg PO DAILY [facility] Last Admin: 07/19/17 08:07 Dose: 2.5 mg Multivitamins/Minerals (Therapeutic-M Tab) 1 tab PO DAILY [facility] Last Admin: 07/19/17 08:07 Dose: 1 tab Pantoprazole Sodium (Protonix Ec Tab) 40 mg PO DAILY [facility] Last Admin: 07/19/17 08:07 Dose: 40 mg Pravastatin Sodium (Pravachol) 20 mg PO HS [facility] Last Admin: 07/19/17 21:08 Dose: 20 mg Sennosides (Senokot Tab) 8.6 mg PO DAILY [facility] Last Admin: 07/19/17 08:06 Dose: 8.6 mg Sodium Chloride (Sodium Chloride Tab) 1 gm PO DAILY [facility] Last Admin: 07/19/17 09:22 Dose: Not Given Thiamine HCl (Vitamin B1 Tab) 100 mg PO DAILY [facility] Last Admin: 07/19/17 08:06 Dose: 100 mg Topiramate (Topamax) 50 mg PO BID [facility] Last Admin: 07/19/17 16:29 Dose: 50 mg - Labs Labs: 07/17/17 06:00 07/17/17 06:00 - Constitutional Appears: No Acute Distress - Head Exam Head Exam: NORMAL INSPECTION - Neurological Exam Neurological Exam: Alert, Awake Neuro motor strength exam: Left Upper Extremity: 4, Right Upper Extremity: 5, Left Lower Extremity: 4, Right Lower Extremity: 5 Additional comments: He is able to some answer questions appropriately and able to follow simple commands. Assessment and Plan (1) Acute intra-cranial hemorrhage Assessment & Plan: Case discussed with Dr. Corrales, continue all current medical, physical, occupational therapies. Recommend monitoring Na level. Status: Acute
[2017-07-20] MEDS: Divalproex 500 mg DR(BID formulation) PO SCH ×2 (09:42→16:50)
[2017-07-20] MEDS: Pantoprazole 40 mg EC Tab PO SCH (09:42)
[2017-07-20] MEDS: Multivitamin With Minerals Tab PO SCH (09:42)
[2017-07-20] MEDS: Pravastatin Sodium 20 MG TAB PO SCH ×2 (21:44→22:05)
[2017-07-21 06:09] LABS: BLOOD UREA NITROGEN 9 mg/dl (9-20); CALCIUM 8.7 mg/dL (8.4-10.2); GFR AFRICAN-AMERICAN > 60; GFR NON-AFRICAN AMERICAN > 60
[2017-07-21] MEDS: Multivitamin With Minerals Tab PO SCH (08:49)
[2017-07-21] MEDS: Pantoprazole 40 mg EC Tab PO SCH (08:50)
[2017-07-21] MEDS: Divalproex 500 mg DR(BID formulation) PO SCH ×2 (08:50→16:58)
--- NOTE | 2017-07-21 10:44 | CP.PCM.PN ---
Subjective - Date & Time of Evaluation Date of Evaluation: 07/21/17 Time of Evaluation: 10:41 - Subjective Subjective: Mr. Carlos was seen and examined at the bedside. He is more alert, oriented to place and person, but not time. He denies any headache, blurred vision, numbness, dizziness, lightheadedness, nausea, or vomiting. He is sitting at the edge at the bed with steady posture. He is able to ambulate with the use of cane and minimal assistance from the staff. His na level remains 141mg/dl. He remains on telesitter and bed alarm for patient safety. Objective - Vital Signs/Intake and Output Vital Signs (last 24 hours): Temp Pulse Resp BP Pulse Ox 97.2 F L 52 L 18 104/42 L 99 07/21/17 08:48 07/21/17 08:49 07/21/17 08:48 07/21/17 08:49 07/21/17 08:48 - Medications Medications: Current Medications Divalproex Sodium (Depakote Dr(*Bid*)) 500 mg PO BID [facility] Last Admin: 07/21/17 08:50 Dose: 500 mg Docusate Sodium (Colace) 100 mg PO DAILY [facility] Last Admin: 07/21/17 08:50 Dose: 100 mg Folic Acid (Folic Acid) 1 mg PO DAILY [facility] Last Admin: 07/21/17 08:50 Dose: 1 mg Lisinopril (Zestril) 2.5 mg PO DAILY [facility] Last Admin: 07/21/17 08:49 Dose: 2.5 mg Multivitamins/Minerals (Therapeutic-M Tab) 1 tab PO DAILY [facility] Last Admin: 07/21/17 08:49 Dose: 1 tab Pantoprazole Sodium (Protonix Ec Tab) 40 mg PO DAILY [facility] Last Admin: 07/21/17 08:50 Dose: 40 mg Pravastatin Sodium (Pravachol) 20 mg PO HS [facility] Last Admin: 07/20/17 22:05 Dose: 20 mg Sennosides (Senokot Tab) 8.6 mg PO DAILY [facility] Last Admin: 07/21/17 08:50 Dose: 8.6 mg Sodium Chloride (Sodium Chloride Tab) 1 gm PO DAILY [facility] Last Admin: 07/21/17 08:50 Dose: 1 gm Thiamine HCl (Vitamin B1 Tab) 100 mg PO DAILY [facility] Last Admin: 07/21/17 08:50 Dose: 100 mg Topiramate (Topamax) 50 mg PO BID [facility] Last Admin: 07/21/17 08:49 Dose: 50 mg - Labs Labs: 07/17/17 06:00 07/21/17 04:55 - Constitutional Appears: No Acute Distress - Head Exam Head Exam: NORMAL INSPECTION - Neurological Exam Neurological Exam: Alert, Awake Neuro motor strength exam: Left Upper Extremity: 4, Right Upper Extremity: 5, Left Lower Extremity: 4, Right Lower Extremity: 5 Additional comments: Neurological unchanged from previous examination. Assessment and Plan (1) Acute intra-cranial hemorrhage Assessment & Plan: Case discussed with Dr. Corrales, continue all current medical, physical, and occupational therapies. Potassium Chloride 40 lashay PO for one dose for 3.2 Status: Acute
--- NOTE | 2017-07-21 10:49 | CP.PCM.PN ---
Subjective - Date & Time of Evaluation Date of Evaluation: 07/21/17 Time of Evaluation: 10:48 - Subjective Subjective: pt is seen and examine for progress note is dictated #[id number] Objective - Vital Signs/Intake and Output Vital Signs (last 24 hours): Temp Pulse Resp BP Pulse Ox 97.2 F L 52 L 18 104/42 L 99 07/21/17 08:48 07/21/17 08:49 07/21/17 08:48 07/21/17 08:49 07/21/17 08:48 - Medications Medications: Current Medications Divalproex Sodium (Depakote Dr(*Bid*)) 500 mg PO BID [facility] Last Admin: 07/21/17 08:50 Dose: 500 mg Docusate Sodium (Colace) 100 mg PO DAILY [facility] Last Admin: 07/21/17 08:50 Dose: 100 mg Folic Acid (Folic Acid) 1 mg PO DAILY [facility] Last Admin: 07/21/17 08:50 Dose: 1 mg Lisinopril (Zestril) 2.5 mg PO DAILY [facility] Last Admin: 07/21/17 08:49 Dose: 2.5 mg Multivitamins/Minerals (Therapeutic-M Tab) 1 tab PO DAILY [facility] Last Admin: 07/21/17 08:49 Dose: 1 tab Pantoprazole Sodium (Protonix Ec Tab) 40 mg PO DAILY [facility] Last Admin: 07/21/17 08:50 Dose: 40 mg Potassium Chloride (Potassium Chloride Oral Soln) 40 meq PO ONCE ONE Stop: 07/21/17 10:48 Pravastatin Sodium (Pravachol) 20 mg PO HS [facility] Last Admin: 07/20/17 22:05 Dose: 20 mg Sennosides (Senokot Tab) 8.6 mg PO DAILY [facility] Last Admin: 07/21/17 08:50 Dose: 8.6 mg Sodium Chloride (Sodium Chloride Tab) 1 gm PO DAILY [facility] Last Admin: 07/21/17 08:50 Dose: 1 gm Thiamine HCl (Vitamin B1 Tab) 100 mg PO DAILY [facility] Last Admin: 07/21/17 08:50 Dose: 100 mg Topiramate (Topamax) 50 mg PO BID [facility] Last Admin: 07/21/17 08:49 Dose: 50 mg - Labs Labs: 07/17/17 06:00 07/21/17 04:55
[2017-07-21] MEDS ORDERED: Potassium Chloride 20 mEq ER Tab PO SCH (11:00)
[2017-07-21] MEDS ORDERED: Potassium Chloride 20 mEq/15 ml LIQ UD PO ONE (11:30)
[2017-07-21] MEDS ORDERED: Potassium Chloride 20 mEq ER Tab PO ONE (11:55)
--- NOTE | 2017-07-21 14:36 | CP.PCM.PN ---
Subjective - Date & Time of Evaluation Date of Evaluation: 07/21/17 Time of Evaluation: 10:00 - Subjective Subjective: no acute compliants at present Objective - Vital Signs/Intake and Output Vital Signs (last 24 hours): Temp Pulse Resp BP Pulse Ox 97.2 F L 52 L 18 104/42 L 99 07/21/17 08:48 07/21/17 08:49 07/21/17 08:48 07/21/17 08:49 07/21/17 08:48 - Medications Medications: Current Medications Divalproex Sodium (Depakote Dr(*Bid*)) 500 mg PO BID [facility] Last Admin: 07/21/17 08:50 Dose: 500 mg Docusate Sodium (Colace) 100 mg PO DAILY [facility] Last Admin: 07/21/17 08:50 Dose: 100 mg Folic Acid (Folic Acid) 1 mg PO DAILY [facility] Last Admin: 07/21/17 08:50 Dose: 1 mg Lisinopril (Zestril) 2.5 mg PO DAILY [facility] Last Admin: 07/21/17 08:49 Dose: 2.5 mg Multivitamins/Minerals (Therapeutic-M Tab) 1 tab PO DAILY [facility] Last Admin: 07/21/17 08:49 Dose: 1 tab Pantoprazole Sodium (Protonix Ec Tab) 40 mg PO DAILY [facility] Last Admin: 07/21/17 08:50 Dose: 40 mg Pravastatin Sodium (Pravachol) 20 mg PO HS [facility] Last Admin: 07/20/17 22:05 Dose: 20 mg Sennosides (Senokot Tab) 8.6 mg PO DAILY [facility] Last Admin: 07/21/17 08:50 Dose: 8.6 mg Sodium Chloride (Sodium Chloride Tab) 1 gm PO DAILY [facility] Last Admin: 07/21/17 08:50 Dose: 1 gm Temazepam (Restoril) 15 mg PO HS PRN PRN Reason: Insomnia Thiamine HCl (Vitamin B1 Tab) 100 mg PO DAILY [facility] Last Admin: 07/21/17 08:50 Dose: 100 mg Topiramate (Topamax) 50 mg PO BID [facility] Last Admin: 07/21/17 08:49 Dose: 50 mg - Labs Labs: 07/17/17 06:00 07/21/17 04:55 - Head Exam Head Exam: ATRAUMATIC, NORMAL INSPECTION, NORMOCEPHALIC - Eye Exam Eye Exam: EOMI, Normal appearance, PERRL Pupil Exam: NORMAL ACCOMODATION - ENT Exam ENT Exam: Mucous Membranes Moist, Normal Exam - Neck Exam Neck Exam: Normal Inspection - Respiratory Exam Respiratory Exam: NORMAL BREATHING PATTERN - Cardiovascular Exam Cardiovascular Exam: REGULAR RHYTHM - GI/Abdominal Exam GI & Abdominal Exam: Soft, Normal Bowel Sounds - Rectal Exam Rectal Exam: NORMAL INSPECTION - Exam External exam: NORMAL EXTERNAL EXAM - Extremities Exam Extremities Exam: Normal Capillary Refill, Normal Inspection - Back Exam Back Exam: NORMAL INSPECTION - Neurological Exam Neurological Exam: Alert, Awake Neuro motor strength exam: Left Upper Extremity: 3, Right Upper Extremity: 3, Left Lower Extremity: 3, Right Lower Extremity: 3 - Psychiatric Exam Psychiatric exam: Normal Affect, Normal Mood - Skin Skin Exam: Dry, Intact Assessment and Plan (1) Acute intra-cranial hemorrhage Assessment & Plan: plan fo rphysical, occupational therapy to continue with present program Status: Acute (2) Alcohol intoxication Status: Acute (3) Fall Status: Acute (4) Head ache Status: Acute (5) Intraparenchymal hematoma of brain Status: Acute (6) Multiple fractures of ribs Status: Acute
[2017-07-21] MEDS: Pravastatin Sodium 20 MG TAB PO SCH (22:02)
--- NOTE | 2017-07-21 22:57 | PN ---
DATE: LOCATION: Patient is located in room 621, bed 1. Patient is seen and examined and dictated for Dr. Martin Bowen. SUBJECTIVE: Mr. Carlos is a 72-year-old elderly male with history of longstanding hypertension, hyperlipidemia, EtOH abuse, status post fall on , was admitted after 1 week to [facility] with altered mental status, decreased physical activity, and confusion and patient was found to have right frontal intracranial bleed and also subdural hematoma. Subsequently, patient underwent evacuation of the subdural hematoma after 1 week and his postoperative course was complicated by left-sided weakness, which lasted for a brief period and suspected to have seizures and antiseizure medication was adjusted by Neurology. Now, patient was transferred to acute rehab for the physical therapy. Patient is not in acute distress as per the rehab therapist. Patient was somewhat confused this morning and did not sleep until 4 a.m. Patient is alert, awake, following simple commands appropriately, not in distress at this time during my examination. No chest pain. No palpitation. No fever. No cough. PHYSICAL EXAMINATION: VITAL SIGNS: As follows: Blood pressure 104/42, pulse 52, respirations 18, temperature 97.2, and saturation 99%. Height 5 feet 1 inches. Weight is 145 pounds. GENERAL: Mr. Carlos is a 72-year-old elderly male, moderately built, moderately nourished, not in distress. HEENT: Pupils are normal and reactive to light and accommodation on the right side. 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 Tongue is moist. Trachea is midline. LUNGS: Symmetric on both sides. Bilateral breath sounds present. Clear on auscultation. CARDIOVASCULAR SYSTEM: [place] at the fifth intercostal space, half-inch medial to midclavicular line. S1 and S2 audible. No murmur. No gallop. ABDOMEN: Normal in appearance, soft, tympanic. No guarding. No rigidity. No hepatosplenomegaly. CENTRAL NERVOUS SYSTEM: Patient is awake, following commands appropriately. EXTREMITIES: No cyanosis. No clubbing. No edema. Power in both upper and lower extremities is within normal limits. MEDICATIONS: His current medications include as follows: Colace 100 mg p.o. daily, Depakote 500 mg p.o. b.i.d., folic acid 1 mg daily, Pravachol 20 mg at bedtime, Protonix 40 mg p.o.daily, Senokot one tablet p.o. daily, sodium chloride tablet 1 g p.o. daily, multivitamin one tablet daily, Topamax 50 mg p.o. b.i.d., thiamine 100 mg p.o. daily, and lisinopril 2.5 mg p.o. daily. LABORATORY DATA: His current laboratory data include as follows: As of 07/21/2017, sodium 141, potassium 3.2, chloride 109, CO2 of 24, BUN 9, creatinine 0.9, glucose 85, calcium 8.7. As of 07/19/2017, total bilirubin 0.3, AST 23, ALT 40, alkaline phosphatase 68, total protein 6.3, albumin is 3.2. As of 07/18/2017, valproic acid is 51.5. ASSESSMENT AND PLAN: In summary, Mr. Carlos is a 72-year-old elderly male with history of hypertension, hyperlipidemia, ethyl alcohol abuse, status post fall on , was admitted after 1 week with altered mental status and confusion and decreased physical activity and does not want to go to the work as usual and patient was found to have a right frontal bleed and also right subdural hematoma, status post evacuation of the right subdural hematoma followed by postoperative left-sided weakness and suspected to have seizure activity and weakness on the left side, which resolved after 1 to 2 hours on antiseizure medication. 1. Hypertension, blood pressure is stable. Continue his lisinopril 2.5 mg daily and hold for systolic blood pressure less than 130. 2. Hypokalemia, agree with potassium supplement, KCl 40 mEq p.o x1 dose, and repeat potassium level in a.m. and check magnesium level also. 3. Status post intracranial bleed secondary to fall, secondary to probably ethyl alcohol abuse. 4 Status post evacuation of the right subdural hematoma. 5. 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 Continue Depakote and Topamax. 6. We will give Restoril 15 mg p.o. at bedtime p.r.n. for insomnia x3 days. Amanda Bowen MD
[2017-07-22] MEDS: Divalproex 500 mg DR(BID formulation) PO SCH ×2 (08:31→16:00)
[2017-07-22] MEDS: Multivitamin With Minerals Tab PO SCH (08:33)
[2017-07-22] MEDS: Pantoprazole 40 mg EC Tab PO SCH (08:33)
[2017-07-22 09:12] LABS: BASO % 0.3 % (0.0-2.0); EOS # 0.2 K/uL (0.0-0.7); HEMOGLOBIN 12.3 g/dL (12.0-18.0); LYMPH % 19.7 % (20.0-40.0); MEAN CELL VOLUME 90.4 fl (80.0-94.0); MEAN CORPUSCULAR HEMOGLOBIN 30.4 pg (27.0-31.0); MEAN CORPUSCULAR HGB CONC 33.7 g/dL (33.0-37.0); MEAN PLATELET VOLUME 7.8 fl (7.2-11.7); MONO # 0.8 K/uL (0.0-0.8); MONO % 14.7 % (0.0-10.0); NEUT # 3.3 K/uL (1.8-7.0); NEUT % 62.3 % (50.0-75.0); RBC 4.04 Mil/uL (4.40-5.90); WHITE BLOOD COUNT 5.3 K/uL (4.8-10.8)
[2017-07-22 09:21] LABS: ALB/GLOB RATIO 1.1 (1.0-2.1); ALBUMIN 3.5 g/dL (3.5-5.0); ALT/SGPT 39 U/L (21-72); AST/SGOT 23 U/L (17-59); BLOOD UREA NITROGEN 9 mg/dl (9-20); CALCIUM 8.9 mg/dL (8.4-10.2); GFR AFRICAN-AMERICAN > 60; GFR NON-AFRICAN AMERICAN > 60
--- NOTE | 2017-07-22 12:25 | CP.PCM.PN ---
Subjective - Date & Time of Evaluation Date of Evaluation: 07/22/17 Time of Evaluation: 08:00 - Subjective Subjective: patinet is alert but confused Objective - Vital Signs/Intake and Output Vital Signs (last 24 hours): Temp Pulse Resp BP Pulse Ox 97.7 F 55 L 20 113/69 100 07/22/17 08:03 07/22/17 08:32 07/22/17 08:03 07/22/17 08:32 07/22/17 08:03 - Medications Medications: Current Medications Divalproex Sodium (Depakote Dr(*Bid*)) 500 mg PO BID [facility] Last Admin: 07/22/17 08:31 Dose: 500 mg Docusate Sodium (Colace) 100 mg PO DAILY [facility] Last Admin: 07/22/17 08:31 Dose: 100 mg Folic Acid (Folic Acid) 1 mg PO DAILY [facility] Last Admin: 07/22/17 08:33 Dose: 1 mg Lisinopril (Zestril) 2.5 mg PO DAILY [facility] Last Admin: 07/22/17 08:32 Dose: 2.5 mg Multivitamins/Minerals (Therapeutic-M Tab) 1 tab PO DAILY [facility] Last Admin: 07/22/17 08:33 Dose: 1 tab Pantoprazole Sodium (Protonix Ec Tab) 40 mg PO DAILY [facility] Last Admin: 07/22/17 08:33 Dose: 40 mg Pravastatin Sodium (Pravachol) 20 mg PO HS [facility] Last Admin: 07/21/17 22:02 Dose: 20 mg Sennosides (Senokot Tab) 8.6 mg PO DAILY [facility] Last Admin: 07/22/17 08:33 Dose: 8.6 mg Sodium Chloride (Sodium Chloride Tab) 1 gm PO DAILY [facility] Last Admin: 07/22/17 08:32 Dose: 1 gm Temazepam (Restoril) 15 mg PO HS PRN PRN Reason: Insomnia Thiamine HCl (Vitamin B1 Tab) 100 mg PO DAILY [facility] Last Admin: 07/22/17 08:31 Dose: 100 mg Topiramate (Topamax) 50 mg PO BID [facility] Last Admin: 07/22/17 08:32 Dose: 50 mg - Labs Labs: 07/22/17 07:30 07/22/17 07:30 - Head Exam Head Exam: ATRAUMATIC, NORMAL INSPECTION, NORMOCEPHALIC Additional comments: scalp healing at present - Eye Exam Eye Exam: EOMI, Normal appearance, PERRL Pupil Exam: NORMAL ACCOMODATION - ENT Exam ENT Exam: Mucous Membranes Moist, Normal Exam - Neck Exam Neck Exam: Normal Inspection - Respiratory Exam Respiratory Exam: NORMAL BREATHING PATTERN - Cardiovascular Exam Cardiovascular Exam: REGULAR RHYTHM - GI/Abdominal Exam GI & Abdominal Exam: Soft, Normal Bowel Sounds - Rectal Exam Rectal Exam: NORMAL INSPECTION - Exam External exam: NORMAL EXTERNAL EXAM - Extremities Exam Extremities Exam: Normal Capillary Refill, Normal Inspection - Back Exam Back Exam: NORMAL INSPECTION - Neurological Exam Neurological Exam: Alert, Awake Neuro motor strength exam: Left Upper Extremity: 3, Right Upper Extremity: 3, Left Lower Extremity: 3, Right Lower Extremity: 3 Assessment and Plan (1) Acute intra-cranial hemorrhage Status: Acute (2) Alcohol intoxication Status: Acute (3) Fall Status: Acute (4) Head ache Status: Acute (5) Intraparenchymal hematoma of brain Status: Acute (6) Multiple fractures of ribs Status: Acute
[2017-07-22] MEDS ORDERED: Potassium Chloride 20 mEq ER Tab PO ONE (14:05)
--- NOTE | 2017-07-22 14:05 | CP.PCM.PN ---
Subjective - Date & Time of Evaluation Date of Evaluation: 07/22/17 Time of Evaluation: 14:05 - Subjective Subjective: pt is seen and examined, progress note is dictated #[id number] Objective - Vital Signs/Intake and Output Vital Signs (last 24 hours): Temp Pulse Resp BP Pulse Ox 97.7 F 55 L 20 113/69 100 07/22/17 08:03 07/22/17 08:32 07/22/17 08:03 07/22/17 08:32 07/22/17 08:03 - Medications Medications: Current Medications Divalproex Sodium (Depakote Dr(*Bid*)) 500 mg PO BID [facility] Last Admin: 07/22/17 08:31 Dose: 500 mg Docusate Sodium (Colace) 100 mg PO DAILY [facility] Last Admin: 07/22/17 08:31 Dose: 100 mg Folic Acid (Folic Acid) 1 mg PO DAILY [facility] Last Admin: 07/22/17 08:33 Dose: 1 mg Lisinopril (Zestril) 2.5 mg PO DAILY [facility] Last Admin: 07/22/17 08:32 Dose: 2.5 mg Multivitamins/Minerals (Therapeutic-M Tab) 1 tab PO DAILY [facility] Last Admin: 07/22/17 08:33 Dose: 1 tab Pantoprazole Sodium (Protonix Ec Tab) 40 mg PO DAILY [facility] Last Admin: 07/22/17 08:33 Dose: 40 mg Pravastatin Sodium (Pravachol) 20 mg PO HS [facility] Last Admin: 07/21/17 22:02 Dose: 20 mg Sennosides (Senokot Tab) 8.6 mg PO DAILY [facility] Last Admin: 07/22/17 08:33 Dose: 8.6 mg Sodium Chloride (Sodium Chloride Tab) 1 gm PO DAILY [facility] Last Admin: 07/22/17 08:32 Dose: 1 gm Temazepam (Restoril) 15 mg PO HS PRN PRN Reason: Insomnia Thiamine HCl (Vitamin B1 Tab) 100 mg PO DAILY [facility] Last Admin: 07/22/17 08:31 Dose: 100 mg Topiramate (Topamax) 50 mg PO BID [facility] Last Admin: 07/22/17 08:32 Dose: 50 mg - Labs Labs: 07/22/17 07:30 07/22/17 07:30
[2017-07-22] MEDS ORDERED: Potassium Chloride 20 mEq ER Tab PO STA (14:49)
[2017-07-22] MEDS: Pravastatin Sodium 20 MG TAB PO SCH (22:24)
--- NOTE | 2017-07-23 04:50 | PN ---
DATE: 07/22/2017 SUBJECTIVE: Mr. Carlos is 72-year-old elderly male with the history of longstanding hypertension, hyperlipidemia, EtOH abuse, status post fall on . Subsequently, the patient was admitted to [facility] after 1 week of the fall with altered mental status and decreased physical activity and unable to go to his regular work. The patient was found to have an intracerebral bleed in the right frontal region and also a right subdural hematoma. Subsequently, the patient underwent the evacuation of the hematoma 1 week after admission. His hospital course was complicated by weakness in the left side, suspected secondary to the seizure new onset. The patient was transferred to acute rehab physical therapy. The patient is not in acute distress, resting comfortably this morning with no complaints. PHYSICAL EXAMINATION: VITAL SIGNS: As follows: Blood pressure 113/69, pulse 55, respiration 20, temperature 97.7, saturation 100%. Height 5 feet 1 inch, weight is 148. GENERAL: Mr. Carlos is 72-year-old elderly male, moderately built, moderately nourished, not in acute distress. HEENT: Pupils are normal and reactive to light and accommodation, conjunctivae pink on the right side. The left eye is blind with a prosthesis. Tongue is moist. Trachea is midline. LUNGS: Symmetric on both sides. Bilateral breath sounds present. Clear on auscultation. CARDIOVASCULAR SYSTEM: [place] at the fifth intercostal space, half-inch medial to midclavicular line. S1 and S2 audible. No murmur. No gallop. ABDOMEN: Normal in appearance, soft, tympanic. No guarding. No rigidity. No hepatosplenomegaly. CENTRAL NERVOUS SYSTEM: The patient is alert, awake, oriented x2. Decreased sensory and motor system is grossly within normal limits. EXTREMITIES: No cyanosis. No clubbing. No edema. CURRENT MEDICATIONS: Include as follows: Colace 100 mg p.o. daily, Depakote 500 mg p.o. b.i.d., folic acid 1 mg daily, Pravachol 20 mg at bedtime, Protonix 40 mg daily, Restoril 15 mg at bedtime, Senokot 8.6 mg p.o. daily, sodium chloride 1 g p.o. daily, multivitamin 1 tablet daily, Topamax 15 mg p.o. b.i.d., thiamine 100 mg p.o. daily, and lisinopril 2.5 mg daily. LABORATORY DATA: As of 07/22/2017, WBC 5.3, hemoglobin 12.3, hematocrit is 36.5, platelets 177. Sodium 143, potassium 3.4, chloride 110, CO2 of 22, BUN 9, creatinine 0.9, glucose 92, calcium 8.9, total bili 0.4, AST 23, ALT 39, alkaline phosphatase 72, total protein 6.2, albumin is 3.5. ASSESSMENT AND PLAN: In summary, Mr. Carlos is 72-year-old elderly male with hypertension, hyperlipidemia, ethyl alcohol abuse, status post fall with intracranial bleed in right frontal region and right subdural hematoma status post evacuation of hematoma and seizure disorder, status post left upper and lower extremity weakness, and low potassium. 1. Hypokalemia, etiology is not clear. We will supplement potassium of 40 mEq p.o. x1 dose. Repeat potassium level in the a.m. 2. Hypertension. Blood pressure is stable, continue lisinopril. 3. Status post fall. 4. Right frontal bleed. 5. Status post evacuation of the subdural hematoma and removal of the madhuri. The scalp healed very well. Continue his current medication. The patient seen and examined, dictated for Dr. Martin Bowen. Amanda Bowen MD
[2017-07-23] MEDS: Divalproex 500 mg DR(BID formulation) PO SCH ×2 (08:16→16:49)
[2017-07-23] MEDS: Pantoprazole 40 mg EC Tab PO SCH (08:16)
[2017-07-23] MEDS: Multivitamin With Minerals Tab PO SCH (08:16)
--- NOTE | 2017-07-23 13:55 | CP.PCM.PN ---
Subjective - Date & Time of Evaluation Date of Evaluation: 07/23/17 Time of Evaluation: 13:54 - Subjective Subjective: pt is seen and examined, progress note is dictated for #[id number] Objective - Vital Signs/Intake and Output Vital Signs (last 24 hours): Temp Pulse Resp BP Pulse Ox 96.4 F L 54 L 18 134/68 100 07/23/17 07:54 07/23/17 07:54 07/23/17 07:54 07/23/17 08:17 07/23/17 07:54 - Medications Medications: Current Medications Divalproex Sodium (Depakote Dr(*Bid*)) 500 mg PO BID [facility] Last Admin: 07/23/17 08:16 Dose: 500 mg Docusate Sodium (Colace) 100 mg PO DAILY [facility] Last Admin: 07/23/17 08:17 Dose: 100 mg Folic Acid (Folic Acid) 1 mg PO DAILY [facility] Last Admin: 07/23/17 08:16 Dose: 1 mg Lisinopril (Zestril) 2.5 mg PO DAILY [facility] Last Admin: 07/23/17 08:17 Dose: 2.5 mg Multivitamins/Minerals (Therapeutic-M Tab) 1 tab PO DAILY [facility] Last Admin: 07/23/17 08:16 Dose: 1 tab Pantoprazole Sodium (Protonix Ec Tab) 40 mg PO DAILY [facility] Last Admin: 07/23/17 08:16 Dose: 40 mg Pravastatin Sodium (Pravachol) 20 mg PO HS [facility] Last Admin: 07/22/17 22:24 Dose: 20 mg Sennosides (Senokot Tab) 8.6 mg PO DAILY [facility] Last Admin: 07/23/17 08:17 Dose: 8.6 mg Sodium Chloride (Sodium Chloride Tab) 1 gm PO DAILY [facility] Last Admin: 07/23/17 08:16 Dose: 1 gm Temazepam (Restoril) 15 mg PO HS PRN PRN Reason: Insomnia Thiamine HCl (Vitamin B1 Tab) 100 mg PO DAILY [facility] Last Admin: 07/23/17 08:16 Dose: 100 mg Topiramate (Topamax) 50 mg PO BID [facility] Last Admin: 07/23/17 08:16 Dose: 50 mg - Labs Labs: 07/22/17 07:30 07/22/17 07:30
--- NOTE | 2017-07-23 20:17 | PN ---
DATE: 07/23/[address] Leslie Bowen. SUBJECTIVE: Mr. Carlos is a 72-year-old elderly male with a history of longstanding hypertension, hyperlipidemia, EtOH abuse, status post fall on , was admitted after 1 week with altered mental status, confusion, decreased physical activity, and the patient was found to have right frontal intracranial bleed and also subdural hematoma. Subsequently, the patient underwent evacuation of the subdural hematoma after 1 week of admission for worsening symptoms and his postoperative course was complicated by left-sided weakness, suspected to have new-onset seizures postop and on anti-seizure medication now. The patient is in acute rehab for continuation of the therapy. The patient is not in distress. The patient is out of bed to chair this morning. The patient's family is at bedside. There are no complaints. As for the patient's family, most of the time he is comprehending and sometimes confused. PHYSICAL EXAMINATION GENERAL: Mr. Carlos is a 72-year-old elderly male, moderately built and moderately nourished, not in distress. VITAL SIGNS: Blood pressure 134/68, pulse 54, respirations 18, temperature 96.4, and saturation 100%. Height 5 feet 1 inch, weight is 148 pounds, and BMI 28.1. HEENT: Right eye is normal, left eye is blind with prosthesis. Tongue is moist. Trachea is midline. The madhuri were removed from the head. Right frontal area is healed very well. LUNGS: Symmetric on both sides. Bilateral breath sounds present. Clear on auscultation. CARDIOVASCULAR: [place] at the fifth intercostal space, midclavicular line. S1 and S2 audible. No murmur. No gallop. ABDOMEN: Normal in appearance. It is soft, tympanic. No guarding. No rigidity. No hepatosplenomegaly. CENTRAL NERVOUS SYSTEM: The patient is alert, awake, and oriented x2-3. Sensory and motor system is within normal limits. Motor system: Power is 5/5 in both upper and lower extremities. EXTREMITIES: No cyanosis. No clubbing. No edema. MEDICATIONS: Include as follows: Colace 100 mg p.o. daily, Depakote 500 mg p.o. b.i.d., folic acid 1 mg p.o. daily, Pravachol 20 mg p.o. at bedtime, Protonix 40 mg daily, Restoril 15 mg p.o. at bedtime, Senokot 8.6 mg p.o. daily, sodium chloride tablet 1 g p.o. daily, multivitamin 1 tablet daily, Topamax 50 mg p.o. b.i.d., thiamine 100 mg p.o. daily, and lisinopril 2.5 mg p.o. daily. LABORATORY DATA: No new labs are available for today. As of 07/22/2017: Potassium 3.4, BUN and creatinine 9/0.9, and sodium is 143. Hemoglobin and hematocrit is 12.3/36.5. ASSESSMENT AND PLAN: In summary, Mr. Carlos is a 72-year-old elderly male with hypertension, hyperlipidemia, ethyl alcohol abuse, status post fall with right frontal intracranial bleed and also right subdural hematoma, status post evacuation of the hematoma one week after admission for worsening symptoms. Subsequently, the patient developed left-sided weakness, was suspected to have seizures, and on anti-seizure medications. 1. Hypertension. Blood pressure is stable. Continue lisinopril. Hold for systolic blood pressure less than 130. 2. New-onset seizures. Continue Topamax and Depakote as per Neurology. 3. Status post intracranial bleed secondary to fall. 4. Status post evacuation of the right subdural hematoma. [place] were removed and healed very well, and we will continue physical therapy as per the rehabilitation recommendations. The patient is seen and examined. Repeat BMP in the a.m. Amanda Bowen MD
[2017-07-23] MEDS: Pravastatin Sodium 20 MG TAB PO SCH (21:25)
[2017-07-24 06:15] LABS: BLOOD UREA NITROGEN 13 mg/dl (9-20); CALCIUM 8.9 mg/dL (8.4-10.2); GFR AFRICAN-AMERICAN > 60; GFR NON-AFRICAN AMERICAN > 60; MAGNESIUM 2.2 MG/DL (1.6-2.3)
[2017-07-24] MEDS: Divalproex 500 mg DR(BID formulation) PO SCH ×2 (08:41→17:04)
[2017-07-24] MEDS: Pantoprazole 40 mg EC Tab PO SCH (08:41)
[2017-07-24] MEDS: Multivitamin With Minerals Tab PO SCH (08:42)
--- NOTE | 2017-07-24 12:13 | CP.PCM.PN ---
Subjective - Date & Time of Evaluation Date of Evaluation: 07/24/17 Time of Evaluation: 12:10 - Subjective Subjective: Mr. Cain was seen and examined at the bedside. He is alert, oriented to place and person. He is able to participate with his cognitive therapy, but gets frustrated towards the end of his therapy. He is able to answer few questions appropriately and follows simple commands.He remains on telesitter for patient safety. His na level 144. There was no untoward events overnight. Objective - Vital Signs/Intake and Output Vital Signs (last 24 hours): Temp Pulse Resp BP Pulse Ox 98.2 F 79 20 132/81 100 07/24/17 08:42 07/24/17 08:42 07/24/17 08:42 07/24/17 08:43 07/24/17 08:42 - Medications Medications: Current Medications Divalproex Sodium (Depakote Dr(*Bid*)) 500 mg PO BID [facility] Last Admin: 07/24/17 08:41 Dose: 500 mg Docusate Sodium (Colace) 100 mg PO DAILY [facility] Last Admin: 07/24/17 08:42 Dose: 100 mg Folic Acid (Folic Acid) 1 mg PO DAILY [facility] Last Admin: 07/24/17 08:42 Dose: 1 mg Lisinopril (Zestril) 2.5 mg PO DAILY [facility] Last Admin: 07/24/17 08:43 Dose: 2.5 mg Multivitamins/Minerals (Therapeutic-M Tab) 1 tab PO DAILY [facility] Last Admin: 07/24/17 08:42 Dose: 1 tab Pantoprazole Sodium (Protonix Ec Tab) 40 mg PO DAILY [facility] Last Admin: 07/24/17 08:41 Dose: 40 mg Pravastatin Sodium (Pravachol) 20 mg PO HS [facility] Last Admin: 07/23/17 21:25 Dose: 20 mg Sennosides (Senokot Tab) 8.6 mg PO DAILY [facility] Last Admin: 07/24/17 08:42 Dose: 8.6 mg Sodium Chloride (Sodium Chloride Tab) 1 gm PO DAILY [facility] Last Admin: 07/24/17 08:42 Dose: 1 gm Thiamine HCl (Vitamin B1 Tab) 100 mg PO DAILY [facility] Last Admin: 07/24/17 08:43 Dose: 100 mg - Labs Labs: 07/22/17 07:30 07/24/17 05:30 - Constitutional Appears: No Acute Distress - Head Exam Head Exam: NORMAL INSPECTION - Neurological Exam Neurological Exam: Alert, Awake Neuro motor strength exam: Left Upper Extremity: 4, Right Upper Extremity: 4, Left Lower Extremity: 4, Right Lower Extremity: 4 Additional comments: Neurological unchanged from previous examination. Assessment and Plan (1) Acute intra-cranial hemorrhage Assessment & Plan: Case discussed with Dr. Corrales, continue all current medical, physical, occupational, and speech therapies. Recommends to increase Topamax from 50 mg PO BID to 100 mg PO BID. Will repeat valproic level on monday. Status: Acute
--- NOTE | 2017-07-24 19:04 | CP.PCM.PN ---
Subjective - Date & Time of Evaluation Date of Evaluation: 07/24/17 Time of Evaluation: 19:04 - Subjective Subjective: pt is seen and examine, progress note is dictated #[id number] Objective - Vital Signs/Intake and Output Vital Signs (last 24 hours): Temp Pulse Resp BP Pulse Ox 98.2 F 82 20 132/81 100 07/24/17 08:42 07/24/17 16:41 07/24/17 08:42 07/24/17 08:43 07/24/17 08:42 - Medications Medications: Current Medications Amantadine HCl (Amantadine 100 Mg Cap) 100 mg PO BID [facility] Last Admin: 07/24/17 17:03 Dose: 100 mg Divalproex Sodium (Depakote Dr(*Bid*)) 500 mg PO BID [facility] Last Admin: 07/24/17 17:04 Dose: 500 mg Docusate Sodium (Colace) 100 mg PO DAILY [facility] Last Admin: 07/24/17 08:42 Dose: 100 mg Donepezil HCl (Aricept) 5 mg PO [facility] Folic Acid (Folic Acid) 1 mg PO DAILY [facility] Last Admin: 07/24/17 08:42 Dose: 1 mg Lisinopril (Zestril) 2.5 mg PO DAILY [facility] Last Admin: 07/24/17 08:43 Dose: 2.5 mg Multivitamins/Minerals (Therapeutic-M Tab) 1 tab PO DAILY [facility] Last Admin: 07/24/17 08:42 Dose: 1 tab Pantoprazole Sodium (Protonix Ec Tab) 40 mg PO DAILY [facility] Last Admin: 07/24/17 08:41 Dose: 40 mg Pravastatin Sodium (Pravachol) 20 mg PO [facility] Last Admin: 07/23/17 21:25 Dose: 20 mg Sennosides (Senokot Tab) 8.6 mg PO DAILY [facility] Last Admin: 07/24/17 08:42 Dose: 8.6 mg Sodium Chloride (Sodium Chloride Tab) 1 gm PO DAILY [facility] Last Admin: 07/24/17 08:42 Dose: 1 gm Thiamine HCl (Vitamin B1 Tab) 100 mg PO DAILY [facility] Last Admin: 07/24/17 08:43 Dose: 100 mg Topiramate (Topamax) 50 mg PO BID [facility] Last Admin: 07/24/17 17:04 Dose: 50 mg - Labs Labs: 07/22/17 07:30 07/24/17 05:30
[2017-07-24] MEDS: Pravastatin Sodium 20 MG TAB PO SCH (21:30)
--- NOTE | 2017-07-25 01:12 | PN ---
DATE: LOCATION: Room 621. Patient was seen and examined. Dictated for Dr. Martin Bowen. SUBJECTIVE: Mr. Carlos is a 72-year-old elderly male with history of hypertension, hyperlipidemia, EtOH abuse, status fall with intracranial bleed in the right frontal region and right subdural hematoma, status post evacuation of hematoma. He was admitted to the acute rehab for physical therapy. Patient is awake, confused from time to time. Patient knows his name and does not know his date of and place and time. PHYSICAL EXAMINATION VITAL SIGNS: Blood pressure this morning 132/81, pulse 79, respirations 20, temperature 98.2, and saturation 100%. Height 5 feet 1 inch, weight is 148 pounds. GENERAL: Mr. Carlos is a 72-year-old elderly male, moderately built, moderately nourished, not in distress. HEENT: Pupils are normal and reactive to light and accommodation, conjunctivae pink. Sclerae anicteric. Tongue is moist. Trachea is midline. 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 Right eye is normal. No thyroid enlargement. LUNGS: Symmetric on both sides. Bilateral breath sounds present. Clear on auscultation. CARDIOVASCULAR SYSTEM: [place] at the fifth intercostal space, in the midclavicular line. S1 and S2 audible. No murmur. No gallop. ABDOMEN: Normal in appearance, soft, tympanic. No guarding. No rigidity. No hepatosplenomegaly. CENTRAL NERVOUS SYSTEM: The patient is awake, following simple commands. Patient knows his name. He does not know the date, time, and place. Sensory motor system is grossly within normal limits. EXTREMITIES: No cyanosis. No clubbing. No edema. CURRENT MEDICATIONS: Include as follows, [id number] mg p.o. b.i.d., Aricept 5 mg p.o. at bedtime, Colace 100 mg p.o. daily, Depakote 500 mg p.o. b.i.d., folic acid 1 mg daily, Pravachol 20 mg at bedtime, Protonix 40 mg p.o.daily, Senokot 8.6 mg p.o. daily, sodium chloride tablets 1 g p.o. daily. No IV fluids. Multivitamin 1 tablet daily, Topamax 50 mg p.o. b.i.d., thiamine 100 mg p.o. daily. LABORATORY DATA: As of 07/24/2017, sodium 144, potassium 3.6, chloride is 110, CO2 of 24, BUN 13, creatinine 0.8, glucose 94, calcium 8.9, magnesium 2.2. ASSESSMENT AND PLAN: In summary, Mr. Carlos is a 72-year-old elderly male with a history of hypertension, hyperlipidemia, ethyl alcohol abuse, status post fall on , was admitted after 1 week to the [facility] with confusion, altered mental status and decreased physical activity, and patient was found to have a right frontal bleed and subdural hematoma and subsequently underwent evacuation of the hematoma after 1 week of admission. Postoperative course was complicated by left-sided weakness, suspected due to seizure disorder and continued antiseizure medications. Now patient was transferred to acute rehab for continuation of the therapy. 1. Hypertension. Discontinuing lisinopril and continue to monitor the blood pressure. 2. Status post right fontal bleed. 3. Status post evacuation of the right subdural hematoma. 4. Seizure disorder. Continue antiseizure medication Depakote and Topamax. Rule out dementia secondary to intracranial bleed and stroke. 5. Continue physical therapy as per the rehab recommendations. Follow up with Neurology for further management. The patient was seen and examined, dictated for Dr. Martin Bowen. Amanda Bowen MD
[2017-07-25] MEDS: Multivitamin With Minerals Tab PO SCH (08:31)
[2017-07-25] MEDS: Pantoprazole 40 mg EC Tab PO SCH (08:31)
[2017-07-25] MEDS: Divalproex 500 mg DR(BID formulation) PO SCH ×2 (08:31→17:04)
[2017-07-25] MEDS: Pravastatin Sodium 20 MG TAB PO SCH (22:17)
[2017-07-26] MEDS: Divalproex 500 mg DR(BID formulation) PO SCH ×2 (08:20→16:55)
[2017-07-26] MEDS: Multivitamin With Minerals Tab PO SCH (08:21)
[2017-07-26] MEDS: Pantoprazole 40 mg EC Tab PO SCH (08:21)
--- NOTE | 2017-07-26 11:03 | CP.PCM.PN ---
Subjective - Date & Time of Evaluation Date of Evaluation: 07/26/17 Time of Evaluation: 11:00 - Subjective Subjective: Mr. Carlos was seen and examined at the bedside. He is alert, oriented to place and person, but not time. He denies any headache, dizziness, lightheadedness, blurred vision. He remains on telesitter for patient safety. His valproic level is 61. He has episode of confusion especially in the afternoon. Objective - Vital Signs/Intake and Output Vital Signs (last 24 hours): Temp Pulse Resp BP Pulse Ox 98.2 F 79 20 124/79 97 07/26/17 09:00 07/26/17 09:00 07/26/17 09:00 07/26/17 09:00 07/26/17 08:25 - Medications Medications: Current Medications Amantadine HCl (Amantadine 100 Mg Cap) 100 mg PO BID [facility] Last Admin: 07/26/17 08:20 Dose: 100 mg Divalproex Sodium (Depakote Dr(*Bid*)) 500 mg PO BID [facility] Last Admin: 07/26/17 08:20 Dose: 500 mg Docusate Sodium (Colace) 100 mg PO DAILY [facility] Last Admin: 07/26/17 08:21 Dose: 100 mg Donepezil HCl (Aricept) 5 mg PO HS [facility] Last Admin: 07/25/17 22:17 Dose: 5 mg Folic Acid (Folic Acid) 1 mg PO DAILY [facility] Last Admin: 07/26/17 08:20 Dose: 1 mg Multivitamins/Minerals (Therapeutic-M Tab) 1 tab PO DAILY [facility] Last Admin: 07/26/17 08:21 Dose: 1 tab Pantoprazole Sodium (Protonix Ec Tab) 40 mg PO DAILY [facility] Last Admin: 07/26/17 08:21 Dose: 40 mg Pravastatin Sodium (Pravachol) 20 mg PO HS [facility] Last Admin: 07/25/17 22:17 Dose: 20 mg Sennosides (Senokot Tab) 8.6 mg PO DAILY [facility] Last Admin: 07/25/17 08:33 Dose: 8.6 mg Sodium Chloride (Sodium Chloride Tab) 1 gm PO DAILY [facility] Last Admin: 07/26/17 08:21 Dose: 1 gm Thiamine HCl (Vitamin B1 Tab) 100 mg PO DAILY [facility] Last Admin: 07/26/17 08:22 Dose: 100 mg Topiramate (Topamax) 50 mg PO BID [facility] Last Admin: 07/26/17 08:21 Dose: 50 mg - Labs Labs: 07/22/17 07:30 07/24/17 05:30 - Constitutional Appears: No Acute Distress - Head Exam Head Exam: NORMAL INSPECTION - Neurological Exam Neurological Exam: Alert, Awake Neuro motor strength exam: Left Upper Extremity: 4, Right Upper Extremity: 5, Left Lower Extremity: 4, Right Lower Extremity: 5 Additional comments: Neurological unchanged from previous examination. Assessment and Plan (1) Acute intra-cranial hemorrhage Assessment & Plan: Case discussed with Dr. Corrales, continue all current medical, physical, occupational, and speech therapies. With valproic level of 61, continue current dose of depakote. Status: Acute
--- NOTE | 2017-07-26 11:17 | CP.PCM.PN ---
Subjective - Date & Time of Evaluation Date of Evaluation: 07/25/17 Time of Evaluation: 18:00 - Subjective Subjective: no acute complaints at present Objective - Vital Signs/Intake and Output Vital Signs (last 24 hours): Temp Pulse Resp BP Pulse Ox 98.2 F 79 20 124/79 97 07/26/17 09:00 07/26/17 09:00 07/26/17 09:00 07/26/17 09:00 07/26/17 08:25 - Medications Medications: Current Medications Amantadine HCl (Amantadine 100 Mg Cap) 100 mg PO BID [facility] Last Admin: 07/26/17 08:20 Dose: 100 mg Divalproex Sodium (Depakote Dr(*Bid*)) 500 mg PO BID [facility] Last Admin: 07/26/17 08:20 Dose: 500 mg Docusate Sodium (Colace) 100 mg PO DAILY [facility] Last Admin: 07/26/17 08:21 Dose: 100 mg Donepezil HCl (Aricept) 5 mg PO [facility] Last Admin: 07/25/17 22:17 Dose: 5 mg Folic Acid (Folic Acid) 1 mg PO DAILY [facility] Last Admin: 07/26/17 08:20 Dose: 1 mg Multivitamins/Minerals (Therapeutic-M Tab) 1 tab PO DAILY [facility] Last Admin: 07/26/17 08:21 Dose: 1 tab Pantoprazole Sodium (Protonix Ec Tab) 40 mg PO DAILY [facility] Last Admin: 07/26/17 08:21 Dose: 40 mg Pravastatin Sodium (Pravachol) 20 mg PO HS [facility] Last Admin: 07/25/17 22:17 Dose: 20 mg Sennosides (Senokot Tab) 8.6 mg PO DAILY [facility] Last Admin: 07/25/17 08:33 Dose: 8.6 mg Sodium Chloride (Sodium Chloride Tab) 1 gm PO DAILY [facility] Last Admin: 07/26/17 08:21 Dose: 1 gm Thiamine HCl (Vitamin B1 Tab) 100 mg PO DAILY [facility] Last Admin: 07/26/17 08:22 Dose: 100 mg Topiramate (Topamax) 50 mg PO BID [facility] Last Admin: 07/26/17 08:21 Dose: 50 mg - Labs Labs: 07/22/17 07:30 07/24/17 05:30 - Head Exam Head Exam: ATRAUMATIC, NORMAL INSPECTION, NORMOCEPHALIC - Eye Exam Eye Exam: EOMI, Normal appearance, PERRL Pupil Exam: NORMAL ACCOMODATION - ENT Exam ENT Exam: Mucous Membranes Moist, Normal Exam - Neck Exam Neck Exam: Normal Inspection - Respiratory Exam Respiratory Exam: NORMAL BREATHING PATTERN - Cardiovascular Exam Cardiovascular Exam: REGULAR RHYTHM - GI/Abdominal Exam GI & Abdominal Exam: Normal Bowel Sounds - Rectal Exam Rectal Exam: NORMAL INSPECTION - Exam External exam: NORMAL EXTERNAL EXAM - Extremities Exam Extremities Exam: Normal Capillary Refill, Normal Inspection - Back Exam Back Exam: NORMAL INSPECTION - Neurological Exam Neurological Exam: Alert, Awake Neuro motor strength exam: Left Upper Extremity: 3, Right Upper Extremity: 3, Left Lower Extremity: 3, Right Lower Extremity: 3 - Psychiatric Exam Psychiatric exam: Normal Affect, Normal Mood - Skin Skin Exam: Dry, Intact Assessment and Plan (1) Acute intra-cranial hemorrhage Assessment & Plan: plan fo rphysical, occupational, rec and speech therapy Status: Acute (2) Alcohol intoxication Status: Acute (3) Fall Status: Acute (4) Head ache Status: Acute (5) Intraparenchymal hematoma of brain Status: Acute (6) Multiple fractures of ribs Status: Acute
--- NOTE | 2017-07-26 11:19 | CP.PCM.PN ---
Subjective - Date & Time of Evaluation Date of Evaluation: 07/26/17 Time of Evaluation: 11:15 - Subjective Subjective: [place] is resting at present, no complaints of any headache Objective - Vital Signs/Intake and Output Vital Signs (last 24 hours): Temp Pulse Resp BP Pulse Ox 98.2 F 79 20 124/79 97 07/26/17 09:00 07/26/17 09:00 07/26/17 09:00 07/26/17 09:00 07/26/17 08:25 - Medications Medications: Current Medications Amantadine HCl (Amantadine 100 Mg Cap) 100 mg PO BID [facility] Last Admin: 07/26/17 08:20 Dose: 100 mg Divalproex Sodium (Depakote Dr(*Bid*)) 500 mg PO BID [facility] Last Admin: 07/26/17 08:20 Dose: 500 mg Docusate Sodium (Colace) 100 mg PO DAILY [facility] Last Admin: 07/26/17 08:21 Dose: 100 mg Donepezil HCl (Aricept) 5 mg PO [facility] Last Admin: 07/25/17 22:17 Dose: 5 mg Folic Acid (Folic Acid) 1 mg PO DAILY [facility] Last Admin: 07/26/17 08:20 Dose: 1 mg Multivitamins/Minerals (Therapeutic-M Tab) 1 tab PO DAILY [facility] Last Admin: 07/26/17 08:21 Dose: 1 tab Pantoprazole Sodium (Protonix Ec Tab) 40 mg PO DAILY [facility] Last Admin: 07/26/17 08:21 Dose: 40 mg Pravastatin Sodium (Pravachol) 20 mg PO HS [facility] Last Admin: 07/25/17 22:17 Dose: 20 mg Sennosides (Senokot Tab) 8.6 mg PO DAILY [facility] Last Admin: 07/25/17 08:33 Dose: 8.6 mg Sodium Chloride (Sodium Chloride Tab) 1 gm PO DAILY [facility] Last Admin: 07/26/17 08:21 Dose: 1 gm Thiamine HCl (Vitamin B1 Tab) 100 mg PO DAILY [facility] Last Admin: 07/26/17 08:22 Dose: 100 mg Topiramate (Topamax) 50 mg PO BID [facility] Last Admin: 07/26/17 08:21 Dose: 50 mg - Labs Labs: 07/22/17 07:30 07/24/17 05:30 - Head Exam Head Exam: ATRAUMATIC, NORMAL INSPECTION, NORMOCEPHALIC - Eye Exam Eye Exam: EOMI, Normal appearance, PERRL Pupil Exam: NORMAL ACCOMODATION - ENT Exam ENT Exam: Mucous Membranes Moist, Normal Exam - Neck Exam Neck Exam: Normal Inspection - Respiratory Exam Respiratory Exam: NORMAL BREATHING PATTERN - Cardiovascular Exam Cardiovascular Exam: REGULAR RHYTHM - GI/Abdominal Exam GI & Abdominal Exam: Soft, Normal Bowel Sounds - Rectal Exam Rectal Exam: NORMAL INSPECTION - Exam External exam: NORMAL EXTERNAL EXAM - Extremities Exam Extremities Exam: Normal Capillary Refill, Normal Inspection - Back Exam Back Exam: NORMAL INSPECTION - Neurological Exam Neurological Exam: Alert, Awake Neuro motor strength exam: Left Upper Extremity: 3, Right Upper Extremity: 3, Left Lower Extremity: 3, Right Lower Extremity: 3 - Psychiatric Exam Psychiatric exam: Normal Affect, Normal Mood - Skin Skin Exam: Dry, Intact Assessment and Plan (1) Acute intra-cranial hemorrhage Assessment & Plan: plan fo rteam conference today to discuss goal and Dc planning, continue with PT< OT and rec therapy Status: Acute (2) Alcohol intoxication Status: Acute (3) Fall Status: Acute (4) Head ache Status: Acute (5) Intraparenchymal hematoma of brain Status: Acute (6) Multiple fractures of ribs Status: Acute
--- NOTE | 2017-07-26 12:06 | PSY.TMCNF ---
Nursing - Vital Signs Vital Signs (Last 8 hours): Vital Signs 07/26/17 07/26/17 08:25 09:00 Temperature 98.2 F 98.2 F Pulse Rate 79 79 Respiratory 20 20 Rate Blood Pressure 124/79 124/79 O2 Sat by Pulse 97 Oximetry Pain: 0 - Precautions: Precautions: Fall Prevention - Medications/Other Issues Comment: On telesitter for safety - Consults Comment: Dr. Escobar ( Neuro ) , Dr. Holloway ( Rehab ) - Skin Incision Site: right side of the head Dressing Status: Clean, Dry, Intact Incision: Healing Well, Well Approximated Incision Line Treatment: Open to air - Toileting Toileting: Supervision - Bladder Management Bladder Pattern: Normal Voiding Method: Toilet - Bowel Management Bowel Pattern: Normal Bowel Management: Supervision Frequency of Accidents: 0 - Transfers Transfers: Supervision - ADL's ADL's: Minimal Assistance - Patient/Family Teaching Comments: Care post head injury and safety precautions - Goals/Time Frame Comments: Per multidisciplinary care plan and goals - Provider Provider: Robina CASEN RN CRRN Physical Therapy - Bed Mobility Bed Mobility: Supervision, Verbal Cues - Transfers Wheelchair to Mat: Supervision, Verbal Cues Sit to Stand: Supervision, Verbal Cues Comment: poor carry-over with impaired safety when sitting back down into chair - Ambulation Level of Assistance: Supervision, Verbal Cues, Contact Guard Distance (ft.): 200 Assistive Devices: Single point cane - Stair Negotiation Stairs: Level of Assistance: Supervision, Verbal Cues, Contact Guard Stairs: Assistive Devices: Right Handrail, Single point cane - Standing Balance Static Stand: Supervision Dynamic Stand: Contact Guard Assist, Minimal Assistance - Pain Comment: Pt with new complaint of headache - Insight/Carryover Insight/Carryover: Fair - Patient/Family Education Comment: Pt disoriented, with poor awareness and safety awareness. Pt with poor insight to deficits and affect on importance, pt requires continued education and training with family present secondary to cognitive deficits - Assessment/Plan Assessment: Pt requires verbal cues for encouragement to participate in sessions. Pt is agreeable; however, does not tolerate duration of sessions as pt presents with decrease interest and decrease attention to task. Pt presents with poor carryover of task rules, decrease command following, and decrease insight of safety. Pt presented with dominoes task and presents with decrease carryover of verbal cues from error recognition and decrease number recognition , visual scanning, and turn taking. When pt participated in word recall task, pt demonstrated decrease recalling facts on demand and required max verbal cues for error recognition and redirection to category as pt would perseverate on previous categories. Pt's mood is stable-flat. - Goals Timeframe: 1 week Goals: S toileting. S toilet txfers. S UE Dressing. S LE dressing. MOD I grooming. MOD I feeding. MIN A bathing. MIN A tub txfer - Provider Therapist: Mary Fiore PT, DPT License Number: [id number] Occupational Therapy - Arousal/Attention/Orientation Patient Orientation: Person - ADL/IADL Self Feeding: Supervision, Verbal Cues, Set-up Help Grooming: Supervision, Verbal Cues, Set-up Help Dressing-Upper Extremity: Supervision, Verbal Cues, Set-up Help Dressing-Lower Extremity: Verbal Cues, Set-up Help, Moderate Assistance - Sitting Balance Static Sitting: Independent with upper extremity support Dynamic Sitting: Reaches across midline, Reaches out of base of support, Reaches within base of support, Requires supervision Comment: seated at edge of bed - Transfers Wheelchair to Bed Transfers: Verbal Cues, Set-up Help, Contact Guard Toilet Transfers: Verbal Cues, Set-up Help, Minimal Assistance - Upper Extremity Status Right Upper Extremity Comment: ROM WFL, MMT grossly 4-/5, Impaired coordination/ dexterity Left Upper Extremity Comment: ROM WFL, MMT grossly 4-/5, Impaired coordination/ dexterity - Pain Comment: Pt with new complaint of headache - Insight/Carryover Insight/Carryover: Fair - Patient/Family Education Comment: Pt disoriented, with poor awareness and safety awareness. Pt with poor insight to deficits and affect on importance, pt requires continued education and training with family present secondary to cognitive deficits - Assessment/Plan Assessment: Pt requires verbal cues for encouragement to participate in sessions. Pt is agreeable; however, does not tolerate duration of sessions as pt presents with decrease interest and decrease attention to task. Pt presents with poor carryover of task rules, decrease command following, and decrease insight of safety. Pt presented with dominoes task and presents with decrease carryover of verbal cues from error recognition and decrease number recognition , visual scanning, and turn taking. When pt participated in word recall task, pt demonstrated decrease recalling facts on demand and required max verbal cues for error recognition and redirection to category as pt would perseverate on previous categories. Pt's mood is stable-flat. - Goals Timeframe: 1 week Goals: S toileting. S toilet txfers. S UE Dressing. S LE dressing. MOD I grooming. MOD I feeding. MIN A bathing. MIN A tub txfer - Provider Therapist: Lupe Banuelos OTR/L Speech Therapy - Consult Information Patient on Program: Yes Medical Diagnosis: INTRAPARENCHYMAL HEMORRHAGE Treatment Diagnosis: moderate-severe cognitive-linguistic deficits - Assessment Problem Solving Impairment: Severe Comment: moderate-severe Memory Impairment: Moderate - Plan Assessment: Pt requires verbal cues for encouragement to participate in sessions. Pt is agreeable; however, does not tolerate duration of sessions as pt presents with decrease interest and decrease attention to task. Pt presents with poor carryover of task rules, decrease command following, and decrease insight of safety. Pt presented with dominoes task and presents with decrease carryover of verbal cues from error recognition and decrease number recognition , visual scanning, and turn taking. When pt participated in word recall task, pt demonstrated decrease recalling facts on demand and required max verbal cues for error recognition and redirection to category as pt would perseverate on previous categories. Pt's mood is stable-flat. - Provider Therapist: Tanya Stevens License Number: [id number] Recreational Therapy - Participation Participation: Participates in Individual and/or Group Sessions - Attendance Attendance: Daily - Activities Leisure Activities: Television - Socialization Level of Socialization: Initiates/interacts freely with care givers and peer - Diversional Time Diversional Time: likes to watch television, sports - Assessment Assessment/Plan: Pt requires verbal cues for encouragement to participate in sessions. Pt is agreeable; however, does not tolerate duration of sessions as pt presents with decrease interest and decrease attention to task. Pt presents with poor carryover of task rules, decrease command following, and decrease insight of safety. Pt presented with dominoes task and presents with decrease carryover of verbal cues from error recognition and decrease number recognition , visual scanning, and turn taking. When pt participated in word recall task, pt demonstrated decrease recalling facts on demand and required max verbal cues for error recognition and redirection to category as pt would perseverate on previous categories. Pt's mood is stable-flat. Problems Currently Limiting Participation: disoriented, decrease activity tolerance level, decrease leisure awareness level, decrease memory recall, language barrier, decrease safety awareness Goals and Time Frame: Pt will be encouraged to participate in 1:1 and group recreation therapy sessions 3-5x week to improve activity tolerance level, leisure awareness level, safety awareness, problem solving, and direction following. - Provider Therapist: Radha Ramachandran, PHYSICAL THERAPY AIDES TEACHER #[id number] Nutrition - Current Diet Current Diet/ Supplement/ Feedings: 3 gram Na diet - Appetite Percent Meal Consumed: 50-74% - Comments Comments: Care post head injury and safety precautions - Assessment/Goals/Time Frame Assessment/Goals/Time Frame: On telesitter for safety - Provider Provider: Angelique Morel RD Case Management - Psychosocial Assessment Support Systems: Alma Carlos ([facility])- [phone] Psychological Interventions/Needs: Patient is alert with confusion, short term memory impairments and poor safety awareness Discharge Concerns: Patient currently requiring CG for bed mobility, transfers and ambulation. Patient with moderate cognitive deficits and will likely require 24 hour supervision post discharge. Patient lives alone with limited support at home Patient/Family Meeting: CM met with patient/family and rehab team. Patient primarily Moldovan speaking, translation - Discharge Plan Discharge Plan: Home with significant other/family Rehabilitation Plan - Treatment Plan Treatment Plan: Physical Therapy, Occupational Therapy, Speech, Dietary, Patient /Family Education - Recommendation Recommendation: Physical Therapy, Occupational Therapy, Speech, Dietary, Patient /Family Education - Discharge Plan Discharge to: Home (DC 07/28)
[2017-07-26] MEDS: Pravastatin Sodium 20 MG TAB PO SCH (21:28)
[2017-07-27] MEDS: Divalproex 500 mg DR(BID formulation) PO SCH ×2 (08:00→17:08)
[2017-07-27] MEDS: Multivitamin With Minerals Tab PO SCH (08:00)
[2017-07-27] MEDS: Pantoprazole 40 mg EC Tab PO SCH (08:01)
--- NOTE | 2017-07-27 09:49 | CP.PCM.PN ---
Subjective - Date & Time of Evaluation Date of Evaluation: 07/27/17 Time of Evaluation: 09:47 - Subjective Subjective: pt is seen and examined, progress note is dictated #[id number] for possible d/c home with daughter in am, with home PT evalauation Objective - Vital Signs/Intake and Output Vital Signs (last 24 hours): Temp Pulse Resp BP Pulse Ox 97.7 F 78 19 118/66 97 07/26/17 20:00 07/26/17 20:00 07/26/17 20:00 07/26/17 20:00 07/26/17 20:00 - Medications Medications: Current Medications Amantadine HCl (Amantadine 100 Mg Cap) 100 mg PO BID [facility] Last Admin: 07/27/17 08:00 Dose: 100 mg Divalproex Sodium (Depakote Dr(*Bid*)) 500 mg PO BID [facility] Last Admin: 07/27/17 08:00 Dose: 500 mg Docusate Sodium (Colace) 100 mg PO DAILY [facility] Last Admin: 07/27/17 08:01 Dose: 100 mg Donepezil HCl (Aricept) 5 mg PO [facility] Last Admin: 07/26/17 21:28 Dose: 5 mg Folic Acid (Folic Acid) 1 mg PO DAILY [facility] Last Admin: 07/27/17 08:01 Dose: 1 mg Multivitamins/Minerals (Therapeutic-M Tab) 1 tab PO DAILY [facility] Last Admin: 07/27/17 08:00 Dose: 1 tab Pantoprazole Sodium (Protonix Ec Tab) 40 mg PO DAILY [facility] Last Admin: 07/27/17 08:01 Dose: 40 mg Pravastatin Sodium (Pravachol) 20 mg PO HS [facility] Last Admin: 07/26/17 21:28 Dose: 20 mg Sennosides (Senokot Tab) 8.6 mg PO DAILY [facility] Last Admin: 07/27/17 08:01 Dose: 8.6 mg Sodium Chloride (Sodium Chloride Tab) 1 gm PO DAILY [facility] Last Admin: 07/27/17 08:01 Dose: 1 gm Thiamine HCl (Vitamin B1 Tab) 100 mg PO DAILY [facility] Last Admin: 07/27/17 08:01 Dose: 100 mg Topiramate (Topamax) 50 mg PO BID [facility] Last Admin: 07/27/17 08:00 Dose: 50 mg - Labs Labs: 07/22/17 07:30 07/24/17 05:30
[2017-07-27 11:06] VITALS: RESP 20
--- NOTE | 2017-07-27 11:52 | CP.PCM.PN ---
Subjective - Date & Time of Evaluation Date of Evaluation: 07/27/17 Time of Evaluation: 11:48 - Subjective Subjective: Mr. Carlos was seen and examined in the therapy session. He is alert, oriented, and denies any headache, dizziness, lightheadedness, nausea, vomiting , or blurred vision. He participates during his therapy. He still has episodes of impulsive behavior, he remains on telesitter for patient safety. There was no untoward events overnight. Objective - Vital Signs/Intake and Output Vital Signs (last 24 hours): Temp Pulse Resp BP Pulse Ox 97.3 F L 78 20 114/76 100 07/27/17 10:00 07/27/17 10:00 07/27/17 10:00 07/27/17 10:00 07/27/17 10:00 - Medications Medications: Current Medications Amantadine HCl (Amantadine 100 Mg Cap) 100 mg PO BID [facility] Last Admin: 07/27/17 08:00 Dose: 100 mg Divalproex Sodium (Depakote Dr(*Bid*)) 500 mg PO BID [facility] Last Admin: 07/27/17 08:00 Dose: 500 mg Docusate Sodium (Colace) 100 mg PO DAILY [facility] Last Admin: 07/27/17 08:01 Dose: 100 mg Donepezil HCl (Aricept) 5 mg PO HS [facility] Last Admin: 07/26/17 21:28 Dose: 5 mg Folic Acid (Folic Acid) 1 mg PO DAILY [facility] Last Admin: 07/27/17 08:01 Dose: 1 mg Multivitamins/Minerals (Therapeutic-M Tab) 1 tab PO DAILY [facility] Last Admin: 07/27/17 08:00 Dose: 1 tab Pantoprazole Sodium (Protonix Ec Tab) 40 mg PO DAILY [facility] Last Admin: 07/27/17 08:01 Dose: 40 mg Pravastatin Sodium (Pravachol) 20 mg PO HS [facility] Last Admin: 07/26/17 21:28 Dose: 20 mg Sennosides (Senokot Tab) 8.6 mg PO DAILY [facility] Last Admin: 07/27/17 08:01 Dose: 8.6 mg Sodium Chloride (Sodium Chloride Tab) 1 gm PO DAILY [facility] Last Admin: 07/27/17 08:01 Dose: 1 gm Thiamine HCl (Vitamin B1 Tab) 100 mg PO DAILY [facility] Last Admin: 07/27/17 08:01 Dose: 100 mg Topiramate (Topamax) 50 mg PO BID [facility] Last Admin: 07/27/17 08:00 Dose: 50 mg - Labs Labs: 07/22/17 07:30 07/24/17 05:30 - Constitutional Appears: No Acute Distress - Head Exam Head Exam: NORMAL INSPECTION - Neurological Exam Neurological Exam: Alert, Awake Neuro motor strength exam: Left Upper Extremity: 5, Right Upper Extremity: 5, Left Lower Extremity: 4, Right Lower Extremity: 5 Additional comments: Neurological unchanged from previous examination. Assessment and Plan (1) Acute intra-cranial hemorrhage Assessment & Plan: Case discussed with Dr. Corrales, continue all current medical, physical, occupational, and speech therapies. Status: Acute
--- NOTE | 2017-07-27 14:25 | PN ---
DATE: 07/27/2017 LOCATION: The patient is located in room 621, bed 1. Patient was seen and examined. Dictated for Dr. Leslie Bowen. SUBJECTIVE: Mr. Carlos is a 72-year-old elderly male with a history of longstanding hypertension, hyperlipidemia, EtOH abuse, left eye blind, status post fall on , and subsequently the patient was admitted to [facility] after 1 week of the fall with altered mental status and confusion and decreased physical activity. The patient was found to have a large right frontal bleed and also subdural hematoma. Subsequently, the patient underwent evacuation of the right subdural hematoma after 1 week of admission. His postop course was complicated by left-sided weakness and suspected to have new onset seizures and weakness, which improved after 1 hour to 2 hours, antiseizure medication was adjusted. The patient was also treated for hyponatremia for possible SIADH. The patient is now in acute rehab for physical therapy. The patient is not in acute distress. The patient is ambulating with assistance with physical therapy. The patient denies any complaints. The patient is awake, oriented x1 to x2. The patient does not know the date and time, and he knows he is in the hospital, but he does not know where it is located also. PHYSICAL EXAMINATION: GENERAL: Mr. Carlos is a 72-year-old elderly male, moderately built, moderately nourished, not in acute distress. VITAL SIGNS: As follows, blood pressure 118/66, pulse 78, respirations 19, temperature 97.7, saturation 97%. Height 5 feet 1 inch, weight is 148 pounds. HEENT: Right eye is normal. 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 Tongue is moist. Trachea is midline. LUNGS: Symmetric on both sides. Bilateral breath sounds present. Clear on auscultation. CARDIOVASCULAR: Spring at the fifth intercostal space, half-inch medial to the midclavicular line. S1 and S2 audible. No murmur. No gallop. ABDOMEN: Normal in appearance, soft, tympanic. No guarding. No rigidity. No hepatosplenomegaly. CENTRAL NERVOUS SYSTEM: The patient is alert, awake, oriented x2. Sensory and motor system is grossly within normal limits. EXTREMITIES: No cyanosis. No clubbing. No edema. The power in both upper and lower extremities is 5/5. CURRENT MEDICATIONS: Include as follows, amantadine 100 mg p.o. b.i.d., Aricept 5 mg p.o. at bedtime, Colace 100 mg p.o. daily, Depakote 500 mg p.o. b.i.d., folic acid 1 mg p.o. daily, Pravachol 20 mg p.o. at bedtime, Protonix 40 mg p.o. daily, Senokot 8.6 mg p.o. daily, sodium chloride tablets 1 g p.o. daily, multivitamin 1 tablet daily, Topamax 50 mg p.o. b.i.d., and thiamine 100 mg p.o. daily. LABORATORY DATA: As of 07/22/2017, WBC 5.3, hemoglobin 12.3, hematocrit is 36.5, platelets 177. As of 07/24/2017, sodium 144, potassium 3.6, chloride 110, CO2 of 24, BUN 13, creatinine 0.8, glucose 94, calcium 8.9, magnesium 2.2, and valproic acid level as of 07/26/2017 is 61.0. ASSESSMENT AND PLAN: In summary, Mr. Carlos is a 72-year-old elderly male, with a history of longstanding hypertension, hyperlipidemia, ethyl alcohol abuse, status post fall on , was admitted to [facility] initially with altered mental status, confusion, and found to have a large right frontal bleed and also right subdural hematoma, status post evacuation of the hematoma subdural one week after the admission. Subsequently, the patient was transferred to acute rehab. 1. Hypertension, blood pressure is stable, off lisinopril at this time. 2. Seizure disorder, new onset. Continue Depakote and Topamax as per the Neurology recommendations. 3. Status post fall with intracranial bleed. Recent CAT scan is showing slow resolution of the intracranial bleed with changes. 4. Pqcs-kg-[id number] dementia,most likely secondary to recent intracranial bleed and ethyl alcohol abuse. Discussed with the patient's nurse and physical therapist, and the patient's daughter at bedside for possible discharge to home with the patient's daughter and also home physical therapy evaluation by [facility]. The patient is seen and examined. Amanda Bowen MD [facility] # [id number]
[2017-07-27] MEDS: Pravastatin Sodium 20 MG TAB PO SCH (21:33)
[2017-07-28 07:42] VITALS: BP 127/73; PULSE 57; TEMP 98.1; O2SAT 99
[2017-07-28] MEDS: Pantoprazole 40 mg EC Tab PO SCH (08:47)
[2017-07-28] MEDS: Multivitamin With Minerals Tab PO SCH (08:47)
[2017-07-28] MEDS: Divalproex 500 mg DR(BID formulation) PO SCH (08:48)
--- NOTE | 2017-07-28 09:03 | CP.PCM.DIS ---
Provider - Provider Date of Admission: 07/14/17 20:10 Attending physician: Leslie Bowen MD Primary care physician: Consults: follow up with neurology Time Spent in preparation of Discharge (in minutes): 50 (follow up neurology in 1-2 weeks, follow up pmd dr. jenkins in 1-2 weeks, c/w home physical therapy, discharge aline is dictated #[id number]) Hospital Course - Lab Results Lab Results: Most Recent Lab Values WBC 5.3 K/uL (4.8-10.8) 07/22/17 07:30 RBC 4.04 Mil/uL (4.40-5.90) L 07/22/17 07:30 Hgb 12.3 g/dL (12.0-18.0) 07/22/17 07:30 Hct 36.5 % (35.0-51.0) 07/22/17 07:30 MCV 90.4 fl (80.0-94.0) 07/22/17 07:30 MCH 30.4 pg (27.0-31.0) 07/22/17 07:30 MCHC 33.7 g/dL (33.0-37.0) 07/22/17 07:30 RDW 14.0 % (11.5-14.5) 07/22/17 07:30 Plt Count 177 K/uL (130-400) 07/22/17 07:30 MPV 7.8 fl (7.2-11.7) 07/22/17 07:30 Neut % (Auto) 62.3 % (50.0-75.0) 07/22/17 07:30 Lymph % (Auto) 19.7 % (20.0-40.0) L 07/22/17 07:30 Mcnairy % (Auto) 14.7 % (0.0-10.0) H 07/22/17 07:30 Eos % (Auto) 3.0 % (0.0-4.0) 07/22/17 07:30 Baso % (Auto) 0.3 % (0.0-2.0) 07/22/17 07:30 Neut # 3.3 K/uL (1.8-7.0) 07/22/17 07:30 Lymph # 1.0 K/uL (1.0-4.3) 07/22/17 07:30 Mcnairy # 0.8 K/uL (0.0-0.8) 07/22/17 07:30 Eos # 0.2 K/uL (0.0-0.7) 07/22/17 07:30 Baso # 0.0 K/uL (0.0-0.2) 07/22/17 07:30 Sodium 144 mmol/l (132-148) 07/24/17 05:30 Potassium 3.6 MMOL/L (3.6-5.0) 07/24/17 05:30 Chloride 110 mmol/L (98-107) H 07/24/17 05:30 Carbon Dioxide 24 mmol/L (22-30) 07/24/17 05:30 Anion Gap 14 (10-20) 07/24/17 05:30 BUN 13 mg/dl (9-20) 07/24/17 05:30 Creatinine 0.8 mg/dl (0.8-1.5) 07/24/17 05:30 Est GFR ( Amer) > 60 07/24/17 05:30 Est GFR (Non-Af Amer) > 60 07/24/17 05:30 POC Glucose (mg/dL) 74 mg/dL (65-110) 07/21/17 05:43 Random Glucose 94 mg/dL (75-110) 07/24/17 05:30 Hemoglobin A1c 5.9 % (4.2-6.5) 07/22/17 07:30 Calcium 8.9 mg/dL (8.4-10.2) 07/24/17 05:30 Magnesium 2.2 MG/DL (1.6-2.3) 07/24/17 05:30 Total Bilirubin 0.4 mg/dl (0.2-1.3) 07/22/17 07:30 Direct Bilirubin 0.2 mg/ml (0.0-0.4) 07/19/17 06:50 AST 23 U/L (17-59) 07/22/17 07:30 ALT 39 U/L (21-72) 07/22/17 07:30 Alkaline Phosphatase 72 U/L (38-126) 07/22/17 07:30 Total Protein 6.8 G/DL (6.3-8.2) 07/22/17 07:30 Albumin 3.5 g/dL (3.5-5.0) 07/22/17 07:30 Globulin 3.3 gm/dL (2.2-3.9) 07/22/17 07:30 Albumin/Globulin Ratio 1.1 (1.0-2.1) 07/22/17 07:30 Valproic Acid 61.0 ug/mL (50.0-100.0) 07/26/17 05:15 Discharge Exam - Head Exam Head Exam: NORMAL INSPECTION Discharge Plan - Follow Up Plan Condition: GOOD Disposition: HOME/ ROUTINE
--- NOTE | 2017-07-28 12:20 | CP.PCM.PN ---
Subjective - Date & Time of Evaluation Date of Evaluation: 07/28/17 Time of Evaluation: 12:17 - Subjective Subjective: Mr. Carlos was seen and examined at the bedside. He is alert with episode of confusion, but able to redirect accordingly. He is able to follow simple commands and answer few questions appropriately. He is excited of going home today. He wanted to take the taxi home if family members will not show up.There was no untoward events overnight. Objective - Vital Signs/Intake and Output Vital Signs (last 24 hours): Temp Pulse Resp BP Pulse Ox 98.1 F 57 L 20 127/73 99 07/28/17 07:42 07/28/17 07:42 07/28/17 07:42 07/28/17 07:42 07/28/17 07:42 - Medications Medications: Current Medications Amantadine HCl (Amantadine 100 Mg Cap) 100 mg PO BID [facility] Last Admin: 07/28/17 08:48 Dose: 100 mg Divalproex Sodium (Depakote Dr(*Bid*)) 500 mg PO BID [facility] Last Admin: 07/28/17 08:48 Dose: 500 mg Docusate Sodium (Colace) 100 mg PO DAILY [facility] Last Admin: 07/28/17 08:47 Dose: 100 mg Donepezil HCl (Aricept) 5 mg PO HS [facility] Last Admin: 07/27/17 21:33 Dose: 5 mg Folic Acid (Folic Acid) 1 mg PO DAILY [facility] Last Admin: 07/28/17 08:48 Dose: 1 mg Multivitamins/Minerals (Therapeutic-M Tab) 1 tab PO DAILY [facility] Last Admin: 07/28/17 08:47 Dose: 1 tab Pantoprazole Sodium (Protonix Ec Tab) 40 mg PO DAILY [facility] Last Admin: 07/28/17 08:47 Dose: 40 mg Pravastatin Sodium (Pravachol) 20 mg PO HS [facility] Last Admin: 07/27/17 21:33 Dose: 20 mg Sennosides (Senokot Tab) 8.6 mg PO DAILY [facility] Last Admin: 07/28/17 08:49 Dose: Not Given Sodium Chloride (Sodium Chloride Tab) 1 gm PO DAILY [facility] Last Admin: 07/28/17 08:46 Dose: 1 gm Thiamine HCl (Vitamin B1 Tab) 100 mg PO DAILY [facility] Last Admin: 07/28/17 08:49 Dose: 100 mg Topiramate (Topamax) 50 mg PO BID [facility] Last Admin: 07/28/17 08:46 Dose: 50 mg - Labs Labs: 07/22/17 07:30 07/24/17 05:30 - Constitutional Appears: No Acute Distress - Head Exam Head Exam: NORMAL INSPECTION - Neurological Exam Neurological Exam: Alert, Awake Neuro motor strength exam: Left Upper Extremity: 4, Right Upper Extremity: 5, Left Lower Extremity: 5, Right Lower Extremity: 5 Additional comments: Neurological unchanged from previous examination. Assessment and Plan (1) Acute intra-cranial hemorrhage Assessment & Plan: Case discussed with Dr. Corrales, continue all current medical regimen and follow up with Dr. Corrales in 2 weeks. Status: Acute
--- NOTE | 2017-07-28 12:47 | CP.PCM.PN ---
Subjective - Date & Time of Evaluation Date of Evaluation: 07/28/17 Time of Evaluation: 08:00 - Subjective Subjective: no acute complaints at present Objective - Vital Signs/Intake and Output Vital Signs (last 24 hours): Temp Pulse Resp BP Pulse Ox 98.1 F 57 L 20 127/73 99 07/28/17 07:42 07/28/17 07:42 07/28/17 07:42 07/28/17 07:42 07/28/17 07:42 - Medications Medications: Current Medications Amantadine HCl (Amantadine 100 Mg Cap) 100 mg PO BID [facility] Last Admin: 07/28/17 08:48 Dose: 100 mg Divalproex Sodium (Depakote Dr(*Bid*)) 500 mg PO BID [facility] Last Admin: 07/28/17 08:48 Dose: 500 mg Docusate Sodium (Colace) 100 mg PO DAILY [facility] Last Admin: 07/28/17 08:47 Dose: 100 mg Donepezil HCl (Aricept) 5 mg PO [facility] Last Admin: 07/27/17 21:33 Dose: 5 mg Folic Acid (Folic Acid) 1 mg PO DAILY [facility] Last Admin: 07/28/17 08:48 Dose: 1 mg Multivitamins/Minerals (Therapeutic-M Tab) 1 tab PO DAILY [facility] Last Admin: 07/28/17 08:47 Dose: 1 tab Pantoprazole Sodium (Protonix Ec Tab) 40 mg PO DAILY [facility] Last Admin: 07/28/17 08:47 Dose: 40 mg Pravastatin Sodium (Pravachol) 20 mg PO HS [facility] Last Admin: 07/27/17 21:33 Dose: 20 mg Sennosides (Senokot Tab) 8.6 mg PO DAILY [facility] Last Admin: 07/28/17 08:49 Dose: Not Given Sodium Chloride (Sodium Chloride Tab) 1 gm PO DAILY [facility] Last Admin: 07/28/17 08:46 Dose: 1 gm Thiamine HCl (Vitamin B1 Tab) 100 mg PO DAILY [facility] Last Admin: 07/28/17 08:49 Dose: 100 mg Topiramate (Topamax) 50 mg PO BID [facility] Last Admin: 07/28/17 08:46 Dose: 50 mg - Labs Labs: 07/22/17 07:30 07/24/17 05:30 - Head Exam Head Exam: NORMAL INSPECTION, NORMOCEPHALIC Additional comments: scalp healed - Eye Exam Eye Exam: EOMI, Normal appearance, PERRL Pupil Exam: NORMAL ACCOMODATION - ENT Exam ENT Exam: Mucous Membranes Moist, Normal Exam - Neck Exam Neck Exam: Normal Inspection - Respiratory Exam Respiratory Exam: NORMAL BREATHING PATTERN - Cardiovascular Exam Cardiovascular Exam: REGULAR RHYTHM - GI/Abdominal Exam GI & Abdominal Exam: Normal Bowel Sounds - Rectal Exam Rectal Exam: NORMAL INSPECTION - Exam External exam: NORMAL EXTERNAL EXAM - Back Exam Back Exam: NORMAL INSPECTION - Neurological Exam Neurological Exam: Alert, Awake Neuro motor strength exam: Left Upper Extremity: 3, Right Upper Extremity: 3, Left Lower Extremity: 3, Right Lower Extremity: 3 - Psychiatric Exam Psychiatric exam: Normal Affect, Normal Mood - Skin Skin Exam: Dry, Intact Assessment and Plan (1) Acute intra-cranial hemorrhage Assessment & Plan: plan for DC home today with family services after Dc and follow up with PMD status post PT, OT, and rec therapy Status: Acute (2) Alcohol intoxication Status: Acute (3) Fall Status: Acute (4) Head ache Status: Acute (5) Intraparenchymal hematoma of brain Status: Acute (6) Multiple fractures of ribs Status: Acute
--- NOTE | 2017-08-01 08:31 | HP ---
LOCATION: The patient is located in acute rehab room 621, bed 1. The patient was seen and examined and dictated for Dr. Martin Bowen. ADMITTING DIAGNOSES: Hypertension; ethyl alcohol abuse; hyperlipidemia; status post fall; status post intracranial bleed; right frontal and subdural hematoma, status post evacuation of the right subdural hematoma and new onset seizures and dementia and debility. DISCHARGE DIAGNOSES: Hypertension; ethyl alcohol abuse; hyperlipidemia; status post fall; status post intracranial bleed; right frontal and subdural hematoma, status post evacuation of the right subdural hematoma and new onset seizures and dementia and debility. HISTORY OF PRESENT ILLNESS: Mr. Carlos is a 72-year-old elderly male with a past medical history significant for longstanding hypertension, hyperlipidemia, EtOH abuse, left eye blind with a prosthesis, who had a fall on on 06/09/2017. Subsequently, the patient was brought to the [facility] 1 week after the fall with altered mental status, confusion and decreased physical activity, lying in the bed most of the time, not going to work. The patient was found to have right frontal bleed and also right subdural hematoma. The patient underwent evacuation of the hematoma after 1-week hospitalization in [facility]. 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 Subsequently, the patient was transferred to the acute rehab for continuation of the physical therapy. The patient is not in any acute distress. Denies headache, dizziness. Denies any chest pain, palpitation. The patient is awake, but following simple commands and oriented x1 to 2. The patient knows he is in the hospital. Does not know the name of the hospital. Does not know the month and year. The patient is able to recognize his family members. Not in any distress. PHYSICAL EXAMINATION: GENERAL: Mr. Carlos is a 72-year-old elderly male, moderately built, moderately nourished, not in any distress. VITAL SIGNS: His vital signs this morning, blood pressure 127/73, pulse 57, respirations 20, temperature 98.1, saturation 99%. Height 5 feet 1 inch. Weight is 148 pounds. HEENT: Left eye is blind. Right eye is normal. Conjunctivae pink. Sclerae anicteric. Tongue is moist. Trachea is midline. LUNGS: Symmetric on both sides. Bilateral breath sounds present. Clear on auscultation. CARDIOVASCULAR SYSTEM: [place] at the fifth intercostal space, half-inch medial to midclavicular line. S1 and S2 audible. No murmur or gallop. ABDOMEN: Normal in appearance, soft, tympanic. No guarding. No rigidity. No hepatosplenomegaly. CENTRAL NERVOUS SYSTEM: The patient is alert, awake, oriented x1 to 2. Sensorimotor system is grossly within normal limits. The patient is following simple commands and oriented x1 to 2. Able to recognize his family members. The patient does not know name of the hospital. Does not know the month and year and does not know his date of . Also, the patient cannot remember some of the things. EXTREMITIES: No cyanosis. No clubbing. No edema. MEDICATIONS: His current medications include as follows; amantadine 10 mg p.o. b.i.d., Aricept 5 mg p.o. daily, Colace 100 mg p.o. daily and Depakote DR 500 mg p.o. b.i.d., folic acid 1 mg p.o. daily, pravastatin 20 mg p.o. at bedtime, Protonix 40 mg daily, Senokot 8.6 mg p.o. daily, sodium chloride 1 g p.o. daily, multivitamin 1 tablet daily, Topamax 50 mg p.o. b.i.d., thiamine 100 mg p.o. daily. LABORATORY DATA: His laboratory data includes as follows as of 07/24/2017, sodium 144, potassium 3.6, chloride 110, CO2 of 24, BUN 13, creatinine 0.8, glucose 94, calcium 8.9 and magnesium 2.2. Valproic acid as of 07/26/2017 is 61. IMPRESSION: In summary, Mr. Carlos is a 72-year-old elderly male with a history of hypertension, hyperlipidemia, ethyl alcohol abuse, status post fall on , admitted to [facility] on 06/17/2017 with altered mental status and confusion and found to have a right frontal intracranial bleed and also subdural hematoma, status post evacuation of the subdural hematoma 1 week after the admission. Subsequently, the patient developed weakness on the left side, suspected secondary to the new-onset seizures. Subsequently, the patient was started on antiseizure medications and discharged from the [facility] to acute rehab on 07/14/2017. 1. Hypertension. The patient is not on any antihypertensive medication. Off lisinopril due to hypotension in the rehab. 2. Status post fall. 3. Right frontal intracranial bleed. 4. Status post evacuation of the right-sided subdural hematoma. 5. New-onset seizures. 6. 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 PLAN: Continue all his current medications including amantadine 100 mg p.o. b.i.d, Aricept 5 mg daily, Colace 100 mg daily, Depakote DR 500 mg p.o. b.i.d., folic acid 1 mg daily, pravastatin 20 mg at bedtime, Protonix 40 mg daily, Senokot 8.6 mg daily, sodium chloride 1 g p.o. daily, multivitamin 1 tablet daily, Topamax 50 mg b.i.d., thiamine 100 mg p.o. daily and also follow up with Neurology as an outpatient in 1 to 2 weeks and follow up with the PMD, Dr. Mustafa in 1 to 2 weeks. The patient would like followup with his primary care doctor Dr. Mustafa. TIME SPENT: 45 minutes to 50 minutes in preparing the paperwork and as per the patient's family, daughter's request, papers were completed and signed today. Amanda Bowen MD cc: MD Leslie Smalls MD
== END 2017-07-28 12:45 | disposition home health service (06) | DRG 949 ==
PROVIDERS: ADMIT Internal Medicine; ATTEND Internal Medicine
PROC: F07Z9FZ Gait Training/Functional Ambulation Treatment using Assistive, Adaptive, Supportive or Protective Equipment (ICD-10-PCS; principal; 2017-07-14)
PROC: F07L6FZ Therapeutic Exercise Treatment of Musculoskeletal System - Lower Back / Lower Extremity using Assistive, Adaptive, Supportive or Protective Equipment (ICD-10-PCS; 2017-07-14)
PROC: F06Z6ZZ Communicative/Cognitive Integration Skills Treatment (ICD-10-PCS; 2017-07-14)
DX: Z48.812 Encounter for surgical aftercare following surgery on the circulatory system (principal); G81.94 Hemiplegia, unspecified affecting left nondominant side; G40.909 Epilepsy, unspecified, not intractable, without status epilepticus; F02.80 Dementia in other diseases classified elsewhere, unspecified severity, without behavioral disturbance, psychotic disturbance, mood disturbance, and anxiety; E78.00 Pure hypercholesterolemia, unspecified; E78.5 Hyperlipidemia, unspecified; R53.81 Other malaise; H54.62 Unqualified visual loss, left eye, normal vision right eye; S22.49XD Multiple fractures of ribs, unspecified side, subsequent encounter for fracture with routine healing; W19.XXXD Unspecified fall, subsequent encounter; I10 Essential (primary) hypertension; E87.6 Hypokalemia; S06.5X9D Traumatic subdural hemorrhage with loss of consciousness of unspecified duration, subsequent encounter